=== PATIENT | female | born 1965 | race Caucasian/White ===

== ENCOUNTER 2019-09-19 12:55 | Emergency (ER) | payer BC, SELFPAY ==
[2019-09-19 13:02] VITALS: BP 94/60; PULSE 85; RESP 16; TEMP 36.7; O2SAT 99
--- NOTE | 2019-09-19 13:14 | ED.URI ---
HPI - URI/Sore Throat General Chief Complaint: Upper Respiratory Infection Stated Complaint: CHILLS/COUGH Time Seen by Provider: 09/19/19 13:15 Source: patient and RN notes reviewed Mode of arrival: ambulatory Limitations: no limitations History of Present Illness HPI Narrative: 53-year-old female presents with concern for 2-day history of body aches, cough, fever, sweats, chills, rhinorrhea, nasal congestion. Reports taking [id number] medication with no relief MD elicited complaint: cough Related Data Home Medications Medication Instructions Recorded Confirmed alprazolam 0.5 mg tablet 0.5 mg PO TID 09/17/19 Allergies Allergy/AdvReac Type Severity Reaction Status Date / Time Penicillins Allergy Unknown Unknown Verified 09/18/19 14:10 tetracycline Allergy Unknown Unknown Verified 09/18/19 14:10 Review of Systems Review of Systems: Narrative: CONSTITUTIONAL: Reports malaise, chills, sweats, fever. EYES: Denies visual changes, redness, or discharge. ENT: Reports rhinorrhea, congestion. Denies sinus pain, otalgia and sore throat. CARDIOVASCULAR: Denies chest pain, palpitations, or edema. RESPIRATORY: Reports cough. Denies dyspnea. GASTROINTESTINAL: Denies abdominal pain, nausea, vomiting, diarrhea SKIN: Denies rash or itching. MUSCULOSKELETAL: Reports myalgia. NEUROLOGIC: Denies headache. All systems reviewed & are unremarkable except as noted in HPI and below PMFSH Social History Social History Smoking status: Current every day smoker Second hand tobacco smoke exposure: Yes Smoking end date: 08/01/01 Alcohol intake: current Comments At time of signature, agree with nursing past medical, surgical, social and family history. There is no relevant family history pertinent to the presenting complaint Exam Narrative: Exam Narrative: GENERAL: Well-appearing, well-nourished, and in no acute distress. HEAD: Normocephalic EYES: PERRLA, conjunctivae clear ENT: Nares clear, turbinates edematous and erythematous, clear discharge. Mucous membranes moist. TM pearly sun with dull light reflex bilaterally; no tragal tenderness. Oropharynx not erythematous without lesions. Tonsils not enlarged and without exudate, no drooling, no hoarseness, no trismus. NECK: Supple. No lymphadenopathy CHEST: Clear to auscultation, breath sounds equal. No wheezing, rhonchi, rales, or stridor. No respiratory distress, speaks in full sentences. Cough noted HEART: Regular rate and rhythm. No murmur heard. Normal peripheral pulses. SKIN: Warm, dry, no rash. NEURO: Alert and oriented x3. PSYCH: Normal mood and affect Course Course Emergency Course: Patient is aware of diagnosis, understands and agrees to treatment plan. Anticipatory guidance given. Patient agrees to follow-up as directed and is aware of reasons to seek care at the emergency department. Portions of this record may have been created with voice recognition software Vital Signs Vital signs: Vital Signs Temperature 98.1 F 09/19/19 13:02 Pulse Rate 85 09/19/19 13:02 Respiratory Rate 16 09/19/19 13:02 Blood Pressure 94/60 L 09/19/19 13:02 Pulse Oximetry 99 09/19/19 13:02 Temperature 98.1 F 09/19/19 13:02 Pulse Rate 85 09/19/19 13:02 Respiratory Rate 16 09/19/19 13:02 Blood Pressure 94/60 L 09/19/19 13:02 Pulse Oximetry 99 09/19/19 13:02 Reviewed. MDM - URI/Sore Throat MDM Narrative Medical decision making narrative: Differential diagnosis considered: Strep pharyngitis, allergic rhinitis, upper respiratory tract infection, sinusitis, rhinosinusitis, nasopharyngitis. viral pharyngitis, otitis media, otitis externa, pneumonia, bronchitis, viral cough syndrome, viral syndrome, and influenza. Exam findings show no acute concerns or changes; patient is non-toxic appearing and is in no distress. Patient is appropriate for outpatient treatment and follow-up. Lab Data Attestation: I reviewed the
== END 2019-09-19 13:37 | disposition home or self-care (01) ==
PROVIDERS: Emergency Provider Nurse Practitioner; PCP Family Medicine
DX: J10.1 Influenza due to other identified influenza virus with other respiratory manifestations (principal); F17.200 Nicotine dependence, unspecified, uncomplicated
CPT/HCPCS: 87804; 99213; G0463

== ENCOUNTER 2020-12-05 11:27 | Outpatient (CLI) | payer BC, SELFPAY ==
--- NOTE | ~2020-12-05 | XR_ITS ---
EXAMINATION: XR chest 2V DATE: 12/05/2020 11:46 INDICATION: 2 weeks of cough TECHNIQUE: PA and lateral views of the chest were obtained. COMPARISON: Chest radiograph dated 12/17/2017 FINDINGS: The lungs are clear with no focal airspace opacities, pulmonary edema, pleural effusion or pneumothor ax. The cardiomediastinal silhouette is normal. There are a few old healed left rib fractures. Cholec ystectomy clips in right upper quadrant. IMPRESSION: 1. No acute cardiopulmonary disease. Reviewed, dictated and finalized at location A.
== END 2020-12-05 11:28 | disposition home or self-care (01) ==
LOC: ANHIMG 11:36
PROVIDERS: PCP Family Medicine; Visit Provider Nurse Practitioner Family
DX: R05 Cough (principal); Z72.0 Tobacco use
CPT/HCPCS: 71046

== ENCOUNTER 2022-01-29 10:30 | Outpatient (CLI) | payer BC, SELFPAY ==
--- NOTE | ~2022-01-29 | XR_ITS ---
XR chest 2V DATE: 01/29/2022 10:53 INDICATION: Cough, chest tightness, shortness of breath. Rhinorrhea. TECHNIQUE: PA and lateral views COMPARISON: 12/05/2020 2 view chest FINDINGS: Normal heart size. No hilar or mediastinal enlargement. Moderate hyperinflation. No pulmonary infiltrate or consolidation, pleural effusion or pulmonary vasc ular congestion or pneumothorax. Status post cholecystectomy Osteopenia. Osteoarthritic change at the glenohumeral joints. IMPRESSION: No active cardiopulmonary disease Reviewed, dictated and finalized at location B.
== END 2022-01-29 10:31 | disposition home or self-care (01) ==
PROVIDERS: PCP Family Medicine; Visit Provider Nurse Practitioner Family
DX: R05.9 Cough, unspecified (principal)
CPT/HCPCS: 71046

== ENCOUNTER 2023-03-23 09:41 | Outpatient (CLI) | payer BC, SELFPAY ==
--- NOTE | ~2023-03-23 | XR_ITS ---
EXAMINATION: XR shoulder RT min 2V INDICATION: Right shoulder pain TECHNIQUE: Four views of the right shoulder are submitted. COMPARISON: None FINDINGS: Normal alignment. No fracture. There is moderate osteoarthritis of the acromioclavicular an d glenohumeral joints. A healed sixth rib fracture is noted. Soft tissues are unremarkable. IMPRESSION: 1. No acute osseous abnormality. Reviewed, dictated and finalized at location A.
== END 2023-03-23 09:42 | disposition home or self-care (01) ==
PROVIDERS: PCP Family Medicine; Visit Provider Nurse Practitioner Family
DX: S49.91XA Unspecified injury of right shoulder and upper arm, initial encounter (principal)
CPT/HCPCS: 73030

== ENCOUNTER 2023-08-11 11:46 | Outpatient (CLI) | payer BC, SELFPAY ==
--- NOTE | ~2023-08-11 | XR_ITS ---
EXAMINATION: XR chest 2V DATE: 08/11/2023 12:04 INDICATION: Chronic cough TECHNIQUE: PA and lateral views of the chest were obtained. COMPARISON: Chest radiograph dated 01/29/2022 FINDINGS: The lungs remain clear with no focal airspace opacities, pulmonary edema, pleural effusion or pneumot horax. The cardiomediastinal silhouette is normal. Cholecystectomy clips in right upper quadrant. Cou ple old healed bilateral rib fractures. IMPRESSION: 1. No acute cardiopulmonary disease. Reviewed, dictated and finalized at location A. 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
== END 2023-08-11 11:47 | disposition home or self-care (01) ==
LOC: ANHIMG 11:49
PROVIDERS: PCP Family Medicine; Visit Provider Nurse Practitioner Family
DX: R05.3 Chronic cough (principal); R06.02 Shortness of breath
CPT/HCPCS: 71046

== ENCOUNTER 2024-02-23 14:47 | Outpatient (CLI) | payer BC, SELFPAY ==
--- NOTE | ~2024-02-23 | CT_ITS ---
CT Scan of the Chest without Contrast: Clinical Indication: Lung cancer screening, nicotine dependence Technique: Contiguous sections were acquired throughout the chest without intravenous contrast. Dose reduction technique was used on this scan by utilizing automated exposure control and iterative recon struction technique. The dose-length product (DLP) was 87.61 mGy-cm. Findings: There is no evidence of any significant mediastinal, hilar or axillary lymphadenopathy. The mediastin al soft tissues appear normal. There is no evidence of pleural or pericardial effusion. The lungs are clear. No pulmonary nodules or infiltrates are noted. There is moderate emphysema. Images through the upper abdomen reveal diffuse hepatic steatosis. Impression: Lung RADS 1: Negative. 12 month follow-up screening CT advised. Moderate emphysema. Reviewed, dictated and finalized at location . Impression: Lung RADS 1: Negative. 12 month follow-up screening CT advised. Moderate emphysema.
== END 2024-02-23 14:48 | disposition home or self-care (01) ==
PROVIDERS: PCP Family Medicine
DX: Z12.2 Encounter for screening for malignant neoplasm of respiratory organs (principal); F17.210 Nicotine dependence, cigarettes, uncomplicated
CPT/HCPCS: 71271

== ENCOUNTER 2024-04-11 13:19 | Outpatient (CLI) | payer BC, SELFPAY ==
[2024-04-12 15:48] LABS: EBV Virus Capsid Ag IgG Ab >750.00 U/mL; EBV Virus Capsid Ag IgM Ab <36.00 U/mL
== END 2024-04-11 13:20 | disposition home or self-care (01) ==
LOC: ANHLAB 13:21
PROVIDERS: PCP Family Medicine; Visit Provider Nurse Practitioner Family
DX: Z20.828 Contact with and (suspected) exposure to other viral communicable diseases (principal)
CPT/HCPCS: 36415; 86664; 86665

== ENCOUNTER 2024-09-01 09:41 | Outpatient (CLI) | payer BC, SELFPAY ==
--- NOTE | ~2024-09-01 | CT_ITS ---
EXAMINATION: CT sinus wo con DATE: 09/01/2024 10:05 INDICATION: TECHNIQUE: Computed tomography (CT) of the paranasal sinuses was performed without intravenous contra st. The dose-length product (DLP) was 189.39 mGy-cm. Iterative reconstruction was used. COMPARISON: None FINDINGS: There is normal development of the paranasal sinuses. The mastoid air cells are clear. Mode rate mucosal thickening in the bilateral maxillary sinuses, with air-fluid levels and aerated secreti ons. Small nodular opacities in the bilateral maxillary sinuses may represent retention cysts/polyps. Complete opacification of a mid left ethmoid air cell, with osseous expansion, likely polyp. Mild mu cosal thickening in the ethmoid and sphenoid sinuses. Mild rightward bowing of the anterior osseous s eptum with a small osseous spur. The bilateral ostiomeatal complexes are patent. Visualized soft tiss ues are unremarkable. Possible prior bilateral antral window procedures. Denys bullosa in the left m iddle turbinate. Aeration/expansion in the left upper nasal cavity, possibly representing a superior turbinate denys bullosa. IMPRESSION: CT findings suggestive of acute bilateral maxillary sinusitis. 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 Bilateral ostiomeatal unit occlusion. Multiple small suspected retention cyst/polyps. Reviewed, dictated and finalized at location K. RADIATION IMPRESSION: CT findings suggestive of acute bilateral maxillary sinusitis. Mucoperiosteal s inus disease involving all paranasal sinuses except for the frontal sinuses. Bilateral ostiomeatal unit occlusion. Multiple small suspected retention cyst/polyps.
--- OUTSIDE RECORDS SUMMARY | 2024-09-01 09:45 | XMS_ITS | Continuity of Care Document ---
Author Organization [facility] Address [address] [place] [address] [address] [place] [address] Phone Care Team Providers Care Roofer Metal Name Role Phone Ronald Purdy Unavailable Unavailable Procedures Procedure Date Eye Exam & Treatment Refraction Office/outpatient Visit, New Advance Directives Directive Yes / No Effective Date File Name No Information Encounters Encounter Description Practice Location Reason(s) For Visit Diagnoses Date Provider Providers Copied on Encounter [facility], [address] [place] [address] [address], [place], [place], [id number], tel:[phone] [address] [facility] No Information [address] Rajwinder Cardenas. [address] [facility] , [address], [place], [address], [place]. tel:[phone] Office/outpat ient Visit, [facility], [address] [place] [address] [address], [place], [place], [id number], tel:[phone] [address] [facility] No Information [address] Rajwinder Cardenas. [address] [facility] [address], [address], [place], [address], [place]. tel:[phone] Family History Family Member Type Diagnosis Age At Onset No Information Payers Payer name Insurance type Covered libertarian ID Authoriza tialiyah(s) [facility] [id number] Social History Type Description Quantity Date Captured Comments Sex Female Smoking Status No Information Chief Complaint And Reason For Visit No Information Reason For Referral Reason For Referral No Information History Of Present Illness Encounter Date Complaint History Of Prese nt Illness No Information Functional Status Date Functional Assessmen t No Information Instructions Date Instruction Additional Infor mation No Information Assessments Type Assessment Date No Information Patient Care Teams Name Effective Dates (start - stop) Status Members No Information
--- OUTSIDE RECORDS SUMMARY | 2024-09-01 09:45 | XMS_ITS | Clinical Summary ---
Author Organization [facility] Address [address] [place] [address]. [place] [address] [place] [address] Care Team Providers Care Nutrition Specialist Name Role Phone Unavailable Primary Care Provider Unavailabl e Social History Tobacco Use Types Packs/Day Years Used Date Smoking Tobacco: Never Assessed Comments Unknown Sex and Gender Information Value Date Recorded Sex Assigned at Not on file Legal Sex Female 8:37 PM CDT Gender Identity Not on file Sexual Orientation Not on file Plan of Treatment Health Maintenance Due Date Last Done Comments Cervical Cancer Screening Pa p Smear (Age 30 to 64) Every 3 Years 1963 Colorectal Cancer Screening Colonoscopy (10 Years) 1963 Annual Physical 10/30/1966 Hepatitis C 10/30/1981 DTaP, Tdap and Td Vaccines ( 1 - Tdap) 10/30/1982 Cervical Cancer Screening Pa p with HPV Testing (Age 30 to 64) Every 5 Years 10/30/1993 Cervical Cancer Screening with HPV 10/30/1993 Mammogram Screening 2003 Zoster Vaccines (1 of 2) 10/30/2013 COVID-19 Vaccine ( - 2023-2 5 season) 2024 Influenza Adult (#1) 2024 RSV Immunization or 60+ Years (1 - 1-dose 75+ series) 10/30/2038 Meningococcal B Vaccine Aged Out No l onger eligible based on patient's age to complete this topic Meningococcal Vaccine Aged Out No altagracia tyson eligible based on patient's age to complete this topic Pneumococcal Vaccine: Pediat rics (0 to 5 Years) and At-Risk Patients (6 to 64 Years) Aged Out No longer eligible b ased on patient's age to complete this topic RSV Immunizations Under 20 Months Aged Out No longer eligible based on patient's age to complete this topic
--- OUTSIDE RECORDS SUMMARY | 2024-09-01 09:45 | XMS_ITS | Clinical Summary ---
Author Organization [facility] Address [address] [place] [address] Care Team Providers Care Cell Biologist Name Role Phone Eliceo Yancey MD Primary Care Provider [phone] Rodríguez Howard MD Unavailable [phone] Source Comments [facility],non-owned Affiliates and Associated Physician Practices is amultiple site organization consisting of ambulatory clinics and hospital sitesin [place], [place], [place] and [place]. This disclosure is being madepursuant to the Care Everywhere program and may not contain all information available regarding this patient. Last updated 18.[facility] Allergies Active Allergy Reactions Criticality Noted Date Comments Nickel Rash Medium 04/21/2021 Tetracycline Urticaria Medium 06/10/2011 Medications * Be aware that medications may not be up to date on this document. Alwaysverify current medications with the patient. Medication Sig Dispensed Refills Start Date End Date Status SYMBICORT 160-4.5 MCG/ACT inhaler Inhale 1 puff by mouth once daily 09/13/2018 Active sertraline (ZOLOFT) 100 MG tablet Take 100 mg by mouth at bedtime 08/17/2018 Active RESTASIS 0.05 % ophthalmic suspension Instill 1 drop into both eyes 2 times daily 06/19/2019 Active ALPRAZolam (XANAX) 0.5 MG tablet TK 1 T PO TID PRF ANXIETY 10/25/2019 Active esomeprazole (NEXIUM) 40 MG capsule Take 40 mg by mouth at bedtime 12/27/2021 Active rosuvastatin (CRESTOR) 20 MG tablet Take 20 mg by mouth 05/12/2021 Activ e albuterol HFA (Proventil; Ventolin; Proair) 108 (90 Base) MCG/ACT inhaler INHALE 2 PUFFS BY MOUTH EVERY 4 HOURS NEEDED FOR SHORTNESS OF BREATH OR WHEEZING 02/02/2022 Active vitamin D3 (Cholecalciferol) 25 MCG (1000 UNITS) tablet Take by mouth once daily Active Active Problems Problem Noted Date Diagnosed Date Primary osteoarthritis of both knees 04/20/2018 Primary osteoarthritis of right knee 01/27/2018 Social History Tobacco Use Types Packs/Day Years Used Date Smoking Tobacco: Every Day Cigarettes 1 30 Smokeless Tobacco: Never Alcohol Use Standard Drinks/Week Comments Not Currently 0 (1 standard drink = 0.6 oz pur e alcohol) AUDIT-C Answer Date Recorded Q1: How often do you have a drink containing alcohol? Monthly or less 05/20/2022 Q2: How many drinks containi ng alcohol do you have on a typical day when you are drinking? Patient does not drink Q3: How often do you have si x or more drinks on one occasion? Never 05/20/2022 Sex and Gender Information Value Date Recorded Sex Assigned at Not on file Gender Identity Not on file Sexual Orientation Not on file Last Filed Vital Signs Vital Sign Reading Time Taken Comments Blood Pressure 109/52 05/21/2022 11:14 AM CDT Pulse 75 05/21/2022 11:14 AM CDT Temperature 36.6 ??C (97.9 ??F) 05/21/2022 11:14 AM C DT Respiratory Rate 16 05/21/2022 11:14 AM CDT Oxygen Saturation 95% 05/21/2022 11:14 AM CDT Inhaled Oxygen Concentration - - Weight 61.8 kg (136 lb 3.2 oz) 05/20/2022 7:43 A M CDT Height 157.5 cm (5' 2 ) 05/20/2022 7:43 AM CDT s tated Body Mass Index 24.91 05/20/2022 7:43 AM CDT Plan of Treatment Health Maintenance Due Date Last Done Comments COLOGUARD (AGES 45-75) - COL ON CA SCREENING 1963 COLON MONITORING 1963 COLONOSCOPY - COLON CA SCREENING 1963 CT COLONOGRAPHY - COLON CA SCREENING 1963 Colorectal Cancer Screening 1963 FIT - COLON CA SCREENING 1963 FLEX SIG - COLON CA SCREENING 1963 MAMMOGRAM 1963 PAP SMEAR 1963 HIV SCREENING 10/30/1978 HEPATITIS C SCREENING 10/26/1981 DTAP/TDAP/TD VACCINES (1 - Tdap) 10/30/1982 PNEUMOCOCCAL VACCINE 50+ (1 of 2 - PCV) 10/30/1982 PNEUMOCOCCAL VACCINE (1 of 2 - PCV) 10/30/1982 LUNG CANCER SCREENING 10/30/2013 ZOSTER VACCINE (1 of 2) 10/30/2013 COVID-19 VACCINE (4 - 2023-2 5 season) 2024 08/04/2021, 10/17/2020, 09/25/2020 INFLUENZA VACCINE (#1) 2024 DEPRESSION SCREENING 08/01/2024 Respiratory Syncytial Virus (RSV) Vaccine Pt: or over 60 yrs (1 - 1-dose 75+ series) 10/30/2038 HEPATITIS B VACCINE Aged Out No longe r eligible based on patient's age to complete this topic HIB VACCINE Aged Out No longer eligi ble based on patient's age to complete this topic HPV VACCINE Aged Out No longer eligi ble based on patient's age to complete this topic MENINGOCOCCAL (Group B) VACCINE Aged Out No longer eligible b ased on patient's age to complete this topic MENINGOCOCCAL VACCINE Aged Out No altagracia tyson eligible based on patient's age to complete this topic Medical Devices Implanted Type Area Innersole Maker Device Identifier Shelf Expiration Date Model / Serial / Lot Cmnt Bone Djo Srg Cblt 40gm Hvisc Strl Implanted:Qty: 1 on 05/20/2022 by Rodríguez Howard MD at [facility] Right: Knee [employer] 02/11/2023 [id number] / / [id number] Tray Tib 67mm Kn Cocr I Beam Implanted:Qty: 1 on 05/20/2022 by Rodríguez Howard MD at [facility] Right: Knee [employer] 02/10/2032 [id number] / / [id number] Cmpnt Fem Kn Rt Cr Cmnt Prm Vngrd Intlk Implanted:Qty: 1 on 05/20/2022 by Rodríguez Howard MD at [facility] Right: Knee [employer] 06/28/2025 [id number] / / [id number] Cmpnt Ptlr Std 28mm 3 Pg Kn Ser A Implanted:Qty: 1 on 05/20/2022 by Rodríguez Howard MD at [facility] Right: Knee [employer] 06/03/2026 [id number] / / [id number] Vngrd Arcm Kn Ant Stab Implanted:Qty: 1 on 05/20/2022 by Rodríguez Howard MD at [facility] Right: Knee [employer] 03/31/2027 [id number] / / [id number] Advance Directives * Full Code (Latest Code Status on File) Date Activated Date Inactivated Comments 05/20/2022 12:37 PM 05/21/2022 2:37 PM Care Teams Cell Biologist Relationship Specialty Start Date End Date Eliceo Yancey MD [address] [place] [address] PCP - General Family Medicine 01/27/18 Rodrí[place] [address] [address] [place] [id number] Orthopedic Surgery 01/27/18
--- OUTSIDE RECORDS SUMMARY | 2024-09-01 09:45 | XMS_ITS | Patient Health Summary ---
Author Organization [facility] Categorical Address [address] [place] [address] Care Team Providers Care Low Pressure Boiler Tender Name Role Phone Eliceo Yancey MD Primary Care Provider [phone] Rodríguez Howard MD Unavailable [phone] Note from [facility] [place] [facility] [place]non-owned Affiliates and Associated Physician Practices is amultiple site organization consisting of ambulatory clinics and hospital sitesin [place], [place], [place] and [place]. This disclosure is being madepursuant to the Care Everywhere program and may not contain all information available regarding this patient. Last updated 18.[facility] Categorical Allergies * Nickel(Rash) -Medium Criticality * Tetracycline(Urticaria) -Medium Criticality * Penicillins(Urticaria) -Medium Criticality,Inactive Medications * Be aware that medications may not be up to date on this document. Alwaysverify current medications with the patient. * SYMBICORT 160-4.5 MCG/ACT inhaler(Started 09/13/2018) Inhale 1 puff by mouth once daily * sertraline (ZOLOFT) 100 MG tablet(Started 08/17/2018) Take 100 mg by mouth at bedtime * RESTASIS 0.05 % ophthalmic suspension(Started 06/19/2019) Instill 1 drop into both eyes 2 times daily * ALPRAZolam (XANAX) 0.5 MG tablet(Started 10/25/2019) TK 1 T PO TID PRF ANXIETY * esomeprazole (NEXIUM) 40 MG capsule(Started 12/27/2021) Take 40 mg by mouth at bedtime * rosuvastatin (CRESTOR) 20 MG tablet(Started 05/12/2021) Take 20 mg by mouth * albuterol HFA (Proventil; Ventolin; Proair) 108 (90 Base) MCG/ACT inhaler (Started 02/02/2022) INHALE 2 PUFFS BY MOUTH EVERY 4 HOURS NEEDED FOR SHORTNESS OF BREATH OR WHEEZING * vitamin D3 (Cholecalciferol) 25 MCG (1000 UNITS) tablet Take by mouth once daily Active Problems Problem Noted Date Diagnosed Date [...] Mass Index 24.91 05/20/2022 7:43 AM CDT Medical Devices Implanted Type Area Flying Shear Operator Device Identifier Shelf Expiration Date Model / Serial / Lot Cmnt Bone Djo Srg Cblt 40gm Hvisc Strl Implanted:Qty: 1 on 05/20/2022 by Rodríguez Howard MD at [facility] Right: Knee [employer] 02/11/2023 600-15-000 / / [id number] Tray Tib 67mm Kn Cocr I Beam Implanted:Qty: 1 on 05/20/2022 by Rodríguez Howard MD at [facility] Right: Knee [employer] 02/10/2032 [id number] / / [id number] Cmpnt Fem Kn Rt Cr Cmnt Prm Vngrd Intlk Implanted:Qty: 1 on 05/20/2022 by Rodríguez Howard MD at [facility] Right: Knee [employer] 06/28/2025 [id number] / / [id number] Cmpnt Ptlr Std 28mm 3 Pg Kn Ser A Implanted:Qty: 1 on 05/20/2022 by Rodríguez Howard MD at [facility] Right: Knee [employer] 06/03/2026 [id number] / / [id number] Vngrd Arcm Kn Ant Stab Implanted:Qty: 1 on 05/20/2022 by Rodríguez Howard MD at [facility] Right: Knee [employer] 03/31/2027 [id number] / / [id number] Procedures * XR KNEE RIGHT 3VW(Performed 07/08/2022) Performed for Aftercare following right knee joint replacement surgery * NEURAXIAL BLOCK(Performed 05/20/2022) * AZ TOTAL KNEE REPLACEMENT(Performed 05/20/2022) * EKG 12-LEAD(Performed 04/09/2022) Performed for Preoperative examination * CBC W AUTO DIFFERENTIAL(Performed 04/09/2022) Performed for Preoperative examination * COMPREHENSIVE METABOLIC PANEL(Performed 04/09/2022) Performed for Preoperative examination * XR KNEE RIGHT 3VW(Performed 03/12/2021) Performed for Primary osteoarthritis of right knee * XR KNEE BILAT 3VW(Performed 04/20/2018) Performed for Pain in both knees, unspecified chronicity Results * XR KNEE RIGHT 3VW (07/08/2022 2:53 PM COMPUTATIONAL THEORY SCIENTIST) Only the most recent of2 resultswithin the time period is included. Anatomical Region Laterality Modality Lower Extremity Computed Radiogr aphy Narrative 07/08/2022 2:54 PM COMPUTATIONAL THEORY SCIENTIST Krystin Vera, RT(R) ? 07/16/2022 ??4:25 PM See progress notes for results Rodríguez Howard MD DIAGNOSTIC IMAGING O RDERABLES * Neuraxial Block (05/20/2022 10:12 AM CDT) Narrative Sony Becerril, DIESEL ENGINE INSPECTOR-EXOTIC DANCER - 05/20/2022 10:12 AM CDT Sony Becerril, DIESEL ENGINE INSPECTOR-EXOTIC DANCER ? 05/20/2022 10:13 AM Neuraxial Block Note ?? Pre-Procedure: ?? Procedure Name: ??Neuraxial Block Patient Location: ??OR Indications: ??surgical anesthesia Pre-Anesthetic Checklist: ??Patient identified, IV Checked, Risks and benefits discussed, Surgical consent verified, Monitors and equipment, Site examined, Pre-op evaluation done, Informed consent obtained, Questions answered/anesthesia questions answered and Allergies reviewed Anticoagulation/ Anti-thrombosis status confirmed? ??Yes Supplemental O2: ??room air Monitors: ??BP and continuous pluse ox Patient Condition: ??sedated, meaningful contact maintained throughout procedure Patient Sedated? ??Nursing sedation administration ? Sedation Type: ??mild ? Sedation Agents (manual): ??versed ?? fentanyl mL Procedure: ?? Block Type: ??Spinal Prep: ??Betadine Sterile Field: ??mask, cap/hat, sterile established and sterile gloves Approach: ??midline Skin was localized? ??Nursing documentation on [facility] Skin localized with: ??Lidocaine 1% and 2 mL Spinal Block: ?? Needle Type: ??spinal needle Needle Gauge: ??22 Needle Length: ??90 mm Placement Site: ??L3-4 Number of Attempts: ??2 CSF: ??free flow, aspiration before injection Local anesthetics used? ??Nursing documentation on the [facility] Spinal Local Anesthetic: ? Bupivacaine: ??0.75% in dextrose 1.7 ??mL Degree of difficulty: ??none Procedure Tolerance: ??tolerated well ?? performed while the patient was sedated Sensory Level: ??lower level Motor Blockade: ??Yes Position post procedure: ??supine Vital Signs: ??Vital signs monitored and stable throughout. ??See anesthesia record for details. Start Time: ??05/20/2022 9:37 AM End Time: ??05/20/2022 9:51 AM Total Time: ??14 Staff: ?? Anesthesia Provider: ??Sony Becerril APRN-EXOTIC DANCER Provider #1: ??Trino Feliciano, HUGH ?? - ??performed the procedure Deandre Orozco MD GENERAL ANESTHESIA O RDERABLES * EKG 12-LEAD (04/09/2022 12:31 PM CDT) Ventricular Rate 75 BPM [facility] Atrial Rate 75 BPM [facility] P-R Interval 116 ms [facility] QRS Duration ms 78 ms [facility] Q-T Interval ms 404 ms [facility] QTC Calculation (Bezet) 451 ms [facility] Calculated P [place] 37 degrees [facility] Calculated R [place] 59 degrees [facility] Calculated T [place] 51 degrees [facility] Interpretation EKG Normal sinus rhythm Normal ECG No previous ECGs available Confirmed by JEANNE STANFORD MD ([id number]) on 04/12/2022 7:51:32 PM [facility] 04/09/2022 12:3 1 PM CDT 04/12/2022 7:51 PM CDT Joie Barrett DO ECG ORDERABLES [facility] * (ABNORMAL) CBC W AUTO DIFFERENTIAL (04/09/2022 12:12 PM CDT) WBC 9.3 4.4 - 10.7 x10E9/L 04/09/2022 12:24 PM CDT [facility] WBC Corrected 04/09/2022 12:24 PM CDT [facility] RBC 5.27(H) 3.80 - 5.20 x10E12/L 04/09/2022 12:24 PM CDT [facility] Hemoglobin 13.4 12.0 - 15.6 gm/dL 04/09/2022 12:24 PM CDT [facility] Hematocrit 43.0 35.9 - 45.5 % 04/09/2022 12:24 PM CDT [facility] MCV 81.6 80.7 - 98.3 fl 04/09/2022 12:24 PM CDT [facility] MCH 25.4(L) 26.7 - 34.0 pg 04/09/2022 12:24 PM CDT [facility] MCHC 31.2 30.8 - 35.9 gm/dL 04/09/2022 12:24 PM CDT [facility] Platelet Count 302 153 - 416 x10E9/L 04/09/2022 12:24 PM CDT [facility] RDW-CV 13.8 12.1 - 14.9 % 04/09/2022 12:24 PM CDT [facility] MPV 9.7 9.4 - 12.9 fl 04/09/2022 12:24 PM CDT [facility] Neutrophils % 57.3 44.0 - 73.0 % 04/09/2022 12:24 PM CDT [facility] Lymphocytes % 31.7 20.0 - 43.0 % 04/09/2022 12:24 PM CDT [facility] Monocytes % 7.5 5.0 - 13.0 % 04/09/2022 12:24 PM CDT [facility] Eosinophils % 2.9 0.0 - 6.0 % 04/09/2022 12:24 PM CDT [facility] Basophils % 0.3 0.0 - 2.0 % 04/09/2022 12:24 PM CDT [facility] Immature Granulocytes 0.3 0 - 1 % 04/09/2022 12:24 PM CDT [facility] Neutrophil Absolute 5.30 2.01 - 7.14 x10E9/L 04/09/2022 12:24 PM CDT [facility] Lymphocytes Absolute 2.93 1.07 - 3.94 x10E9/L 04/09/2022 12:24 PM CDT [facility] Monocytes Absolute 0.69 0.26 - 1.07 x10E9/L 04/09/2022 12:24 PM CDT [facility] Eosinophils Absolute 0.27 0 - 0.47 x10E9/L 04/09/2022 12:24 PM CDT [facility] Basophils Absolute 0.03 0 - 0.08 x10E9/L 04/09/2022 12:24 PM CDT [facility] Immature Granulocytes Absolute 0.03 0.00 - 0.06 x10E9/L 04/09/2022 12:24 PM CDT [facility] nRBC Auto 0 /100 WBC 04/09/2022 12:24 PM CDT [facility] Blood BLOOD SPECIMEN / Unknown Venipuncture / Unknown 04/09/2022 12:12 PM CDT 04/09/2022 12:19 PM CDT Hailey K Nemesio DIESEL ENGINE INSPECTOR-DOCUMENT IMAGE TECHNICIAN LAB - HEMATO LOGY ORDERABLES [facility] [address] [place] [address] * (ABNORMAL) COMPREHENSIVE METABOLIC PANEL (04/09/2022 12:12 PM CDT) Glucose 95 70 - 105 mg/dL 04/09/2022 12:41 PM CDT [facility] Sodium 140 136 - 145 mmol/L 04/09/2022 12:41 PM CDT [facility] Potassium 4.1 3.5 - 5.1 mmol/L 04/09/2022 12:41 PM CDT [facility] Chloride 106 98 - 107 mmol/L 04/09/2022 12:41 PM CDT [facility] CO2 27 23 - 31 mmol/L 04/09/2022 12:41 PM CDT [facility] Calcium 9.3 8.4 - 10.4 mg/dL 04/09/2022 12:41 PM CDT [facility] Anion Gap 7(L) 8 - 18 mmol/L 04/09/2022 12:41 PM CDT [facility] BUN 14 9.8 - 20.1 mg/dL 04/09/2022 12:41 PM CDT [facility] Creatinine 0.67 0.57 - 1.11 mg/dL 04/09/2022 12:41 PM CDT [facility] Alkaline Phosphatase 128 40 - 150 U/L 04/09/2022 12:41 PM CDT [facility] ALT 17 0 - 61 U/L 04/09/2022 12:41 PM CDT [facility] AST 20 5 - 34 U/L 04/09/2022 12:41 PM CDT [facility] Protein Total 7.4 6.4 - 8.3 gm/dL 04/09/2022 12:41 PM CDT [facility] Albumin 4.5 3.5 - 5.2 gm/dL 04/09/2022 12:41 PM CDT [facility] Bilirubin Total 0.6 0.2 - 1.2 mg/dL 04/09/2022 12:41 PM CDT [facility] eGFR by CKD-EPI >90 >=90 mL/min/1.7 3 m2 04/09/2022 12:41 PM CDT [facility] Blood BLOOD SPECIMEN / Unknown Venipuncture / Unknown 04/09/2022 12:12 PM CDT 04/09/2022 12:19 PM CDT Hailey Herr DIESEL ENGINE INSPECTOR-DOCUMENT IMAGE TECHNICIAN LAB - CHEMIS TRY ORDERABLES [facility] [address] [place] [address] * XR KNEE BILAT 3VW (04/20/2018 3:26 PM CDT) Anatomical Region Laterality Modality Lower Extremity Computed Radiogr aphy Narrative 04/20/2018 5:22 PM CDT Park Catherine, RT(R) ? 04/20/2018 ??5:22 PM See Chart For Xray Report Elicia Bravo PA-C DIAGNOSTIC IM AGING ORDERABLES Care Teams Low Pressure Boiler Tender Relationship Specialty Start Date End Date Eliceo Yancey MD [address] [place] [id number] PCP - General Family Medicine 01/27/18 Rodrí[place] [id number] [address] [place] [id number] Orthopedic Surgery 01/27/18
--- OUTSIDE RECORDS SUMMARY | 2024-09-01 09:45 | XMS_ITS | Referral Summary ---
Author Organization [facility] [employer] Address [address] [place] [address] Care Team Providers Care Offshore Diver Name Role Phone Eliceo Yancey MD Primary Care Provider [phone] Rodríguez Howard MD Unavailable [phone] Source Comments [facility],non-owned Affiliates and Associated Physician Practices is amultiple site organization consisting of ambulatory clinics and hospital sitesin [place], [place], [place] and [place]. This disclosure is being madepursuant to the Care Everywhere program and may not contain all information available regarding this patient. Last updated 18.[facility] Allergies Active Allergy Reactions Criticality Noted Date [...] 05/20/2022 7:43 AM CDT Plan of Treatment Not on file Medical Devices Implanted Type Area Quality Control Operator Device Identifier Shelf Expiration Date Model / Serial / Lot Cmnt Bone Djo Srg Cblt 40gm Hvisc Strl Implanted:Qty: 1 on 05/20/2022 by Rodríguez Howard MD at [facility] Right: Knee [employer] 02/11/2023 600-15-000 / / [id number] Tray Tib 67mm Kn Cocr I Beam Implanted:Qty: 1 on 05/20/2022 by Rodríguez Howard MD at [facility] Right: Knee [employer] 02/10/2032 [id number] / / [id number] Cmpnt Fem Kn Rt Cr Cmnt Prm Vngrd Intlk Implanted:Qty: 1 on 05/20/2022 by Rodríguez Howard MD at [facility] Right: Knee [employer] 06/28/2025 [id number] / / [id number] Cmpnt Ptlr Std 28mm 3 Pg Kn Ser A Implanted:Qty: 1 on 05/20/2022 by Rodríguez Howard MD at [facility] Right: Knee [employer] 06/03/2026 [id number] / / [id number] Vngrd Arcm Kn Ant Stab Implanted:Qty: 1 on 05/20/2022 by Rodríguez Howard MD at [facility] Right: Knee [employer] 03/31/2027 [id number] / / [id number] Advance Directives * Full Code (Latest Code Status on File) Date Activated Date Inactivated Comments 05/20/2022 12:37 PM 05/21/2022 2:37 PM Care Teams Offshore Diver Relationship Specialty Start Date End Date Eliceo Yancey MD [address] [place] [phone] PCP - General Family Medicine 01/27/18 Rodrí[place] [id number] [address] Orthopedic Surgery 01/27/18
--- OUTSIDE RECORDS SUMMARY | 2024-09-01 09:45 | XMS_ITS | Clinical Summary ---
Author Organization [facility] Care Team Providers Care Securities Supervisor Name Role Phone Unavailable Primary Care Provider Unavailabl e Social History Tobacco Use Types Packs/Day Years Used Date Smoking Tobacco: Never Assessed Comments Unknown Sex and Gender Information Value Date Recorded Sex Assigned at Not on file Legal Sex Female 11:28 PM CDT Gender Identity Not on file Sexual Orientation Not on file Plan of Treatment Health Maintenance Due Date Last Done Comments Hepatitis C Virus (HCV) Screening 1965 Pap Smear 10/30/1984 Cervical Cancer Screening (CCS) 10/30/1993 HPV/Cotest 10/30/1993 Colonoscopy 10/30/2008 Colorectal Cancer Screening 10/30/2008 Cologuard 10/30/2013 Immunochemical Fecal Occult Blood 10/30/2013 Mammogram 10/30/2013 Pneumococcal Immunization (5 0+ years) (1 of 1 - PCV) 10/30/2013 Zoster Immunization (1 of 2) 10/30/2013 Influenza Immunization (#1) 2024 SARS-COV-2 Immunization ( season) 2024 08/04/2021, 10/17/2020, 09/25/2020 Respiratory Syncytial Virus (RSV) Immunization (Adult) (1 - 1-dose 75+ series) 10/30/2038 DTaP/Tdap/Td Immunization Discontinued 06/27/2018 TdaP Immunization Completed 06/27/2018 Hepatitis B Immunization Aged Out No longer eligible based on patient's age to complete this topic Meningococcal Immunization (ACWY) Aged Out No longer eligible based on patient's age to complete this topic Pneumococcal Immunization Combined Aged Out No longer eligible based on patient's age to complete this topic Rotavirus Immunization Aged Out No lo nger eligible based on patient's age to complete this topic
== END 2024-09-01 09:42 | disposition home or self-care (01) ==
PROVIDERS: PCP Family Medicine; Visit Provider Nurse Practitioner Adult Health
DX: J32.9 Chronic sinusitis, unspecified (principal)
CPT/HCPCS: 70486

== ENCOUNTER 2024-09-05 11:59 | Outpatient (CLI) | payer BC, SELFPAY ==
--- NOTE | ~2024-09-05 | XR_ITS ---
EXAMINATION: XR chest 2V 09/05/2024 12:12 INDICATION: Acute bronchitis PROCEDURE: 2 view chest COMPARISON: 08/11/2023 FINDINGS: The lungs are clear. The lungs are hyperinflated which is consistent with, but not diagnost ic of chronic obstructive pulmonary disease. The cardiomediastinal silhouette is within normal limits . There are no pleural effusions. There is no pneumothorax suspected. IMPRESSION: 1: NO ACUTE CARDIOPULMONARY DISEASE. Reviewed, dictated and finalized at location B. INE LEATHER TRIMMER
--- OUTSIDE RECORDS SUMMARY | 2024-09-05 13:16 | XMS_ITS | Clinical Summary ---
Author Organization [facility] [employer] Address [address] [place] [address] Care Team Providers Care Capacity Planner Name Role Phone Eliceo Yancey MD Primary Care Provider Rodríguez Howard MD Unavailable [phone] Source Comments [facility],non-owned Affiliates and Associated Physician Practices is amultiple site organization consisting of ambulatory clinics and hospital sitesin [place], [place], [place] and [place]. This disclosure is being madepursuant to the Care Everywhere program and may not contain all information available regarding this patient. Last updated 18.[facility] [employer] Allergies Active Allergy Reactions Criticality Noted Date [...] this topic Medical Devices Implanted Type Area Correction Officer Supervisor Device Identifier Shelf Expiration Date Model / Serial / Lot Cmnt Bone Djo Srg Cblt 40gm Hvisc Strl Implanted:Qty: 1 on 05/20/2022 by Rodríguez Howard MD at [facility] Right: Knee [employer] 02/11/2023 600-15-000 / / [id number] Tray Tib 67mm Kn Cocr I Beam Implanted:Qty: 1 on 05/20/2022 by Rodríguez Howard MD at [facility] Right: Knee [employer] 02/10/2032 [id number] / / [id number] Cmpnt Fem Kn Rt Cr Cmnt Prm Vngrd Intlk Implanted:Qty: 1 on 05/20/2022 by Rodríguez Howard MD at [facility] Right: Knee [employer] 06/28/2025 [id number] / / [id number] Cmpnt Ptlr Std 28mm 3 Pg Kn Ser A Implanted:Qty: 1 on 05/20/2022 by Rodríguez Howard MD at [facility] Right: Knee [employer] 06/03/2026 [id number] / / [id number] Brng [id number] Vngrd Arcm Kn Ant Stab Implanted:Qty: 1 on 05/20/2022 by Rodríguez Howard MD at [facility] Right: Knee [employer] 03/31/2027 [id number] / / [id number] Advance Directives * Full Code (Latest Code Status on File) Date Activated Date Inactivated Comments 05/20/2022 12:37 PM 05/21/2022 2:37 PM Care Teams Capacity Planner Relationship Specialty Start Date End Date Eliceo Yancey MD [address] [place] [address] PCP - General Family Medicine 01/27/18 Rodrí[place] [address] [place] [id number] Orthopedic Surgery 01/27/18
--- OUTSIDE RECORDS SUMMARY | 2024-09-05 13:16 | XMS_ITS | Patient Health Summary ---
Author Organization [facility] Address [address] [place] [address] Care Team Providers Care Demographer Name Role Phone Eliceo Yancey MD Primary Care Provider [phone] Rodríguez Howard MD Unavailable [phone] Note from [facility][note 3],non-owned Affiliates and Associated Physician Practices is amultiple site organization consisting of ambulatory clinics and hospital sitesin [place], [place], [place] and [place]. This disclosure is being madepursuant to the Care Everywhere program and may not contain all information available regarding this patient. Last updated 18.[facility] Allergies * Nickel(Rash) -Medium Criticality * Tetracycline(Urticaria) [...] AM CDT Medical Devices Implanted Type Area Motor Vehicle Light Assembler Device Identifier Shelf Expiration Date Model / Serial / Lot Cmnt Bone Djo Srg Cblt 40gm Hvisc Strl Implanted:Qty: 1 on 05/20/2022 by Rodríguez Howard MD at [facility] Right: Knee [employer] 02/11/2023 600-15-000 / / [id number] Tray Tib 67mm Kn Cocr I Beam Implanted:Qty: 1 on 05/20/2022 by Rodríguez Howard MD at [facility] Right: Knee [employer] 02/10/2032 [id number] / / [id number] Cmpnt Fem Kn Rt Cr Cmnt Prm Vngrd Intlk Implanted:Qty: 1 on 05/20/2022 by Rodríguez Howard MD at [facility] Right: Knee [employer] 06/28/2025 [id number] / / [id number] Cmpnt Ptlr Std 28mm 3 Pg Kn Ser A Implanted:Qty: 1 on 05/20/2022 by Rodríguez Howard MD at [facility] Right: Knee [employer] 06/03/2026 [id number] / / [id number] Vngrd Arcm Kn Ant Stab Implanted:Qty: 1 on 05/20/2022 by Rodríguez Howard MD at [facility] Right: Knee [employer] 03/31/2027 [id number] / / [id number] Procedures * XR KNEE RIGHT 3VW(Performed 07/08/2022) Performed for Aftercare following right knee joint replacement surgery * NEURAXIAL BLOCK(Performed 05/20/2022) * NV TOTAL KNEE REPLACEMENT(Performed 05/20/2022) * EKG 12-LEAD(Performed [...] XR KNEE RIGHT 3VW (07/08/2022 2:53 PM VOCATIONAL PLACEMENT SPECIALIST) Only the most recent of2 resultswithin the time period is included. Anatomical Region Laterality Modality Lower Extremity Computed Radiogr aphy Narrative 07/08/2022 2:54 PM VOCATIONAL PLACEMENT SPECIALIST Krystin Vera, RT(R) ? 07/16/2022 ??4:25 PM See progress notes for results Rodríguez Howard MD DIAGNOSTIC IMAGING O RDERABLES * Neuraxial Block (05/20/2022 10:12 AM CDT) Narrative Sony Becerril, FORESTRY PILOT-BASEBALL INSPECTOR AND REPAIRER - 05/20/2022 10:12 AM CDT Sony Becerril, FORESTRY PILOT-BASEBALL INSPECTOR AND REPAIRER ? 05/20/2022 10:13 AM Neuraxial Block Note [...] ??midline Skin was localized? ??Nursing documentation on [facility] Skin localized with: ??Lidocaine 1% and 2 mL Spinal Block: ?? Needle Type: ??spinal needle Needle Gauge: ??22 Needle Length: ??90 mm Placement Site: ??L3-4 Number of Attempts: ??2 CSF: ??free flow, aspiration before injection Local anesthetics used? ??Nursing documentation on the [facility] Spinal Local Anesthetic: ? Bupivacaine: ??0.75% in [...] ??14 Staff: ?? Anesthesia Provider: ??Sony Becerril APRN-BASEBALL INSPECTOR AND REPAIRER Provider #1: ??Trino Feliciano, HUGH ?? - [...] (Bezet) 451 ms [facility] MUSE Calculated P Christine 37 degrees [facility] M[facility] Calculated R Christine 59 degrees [facility] Calculated T Christine 51 degrees [facility] Interpretation EKG Normal [...] - 0.08 x10E9/L 04/09/2022 12:24 PM CDT [facility] Immature Granulocytes Absolute 0.03 0.00 - 0.06 x10E9/L 04/09/2022 12:24 PM CDT [facility] nRBC Auto 0 /100 WBC 04/09/2022 12:24 PM CDT [facility] Blood BLOOD SPECIMEN / Unknown Venipuncture / Unknown 04/09/2022 12:12 PM CDT 04/09/2022 12:19 PM CDT Hailey K Nemesio FORESTRY PILOT-SUPERVISOR [facility] HEMATO LOGY ORDERABLES [facility] [address] [place] [address] * (ABNORMAL) COMPREHENSIVE METABOLIC PANEL (04/09/2022 12:12 PM CDT) Glucose 95 70 - 105 mg/dL 04/09/2022 12:41 PM CDT [facility] Sodium 140 136 - 145 mmol/L 04/09/2022 12:41 PM CDT [facility] Potassium 4.1 3.5 - 5.1 mmol/L 04/09/2022 12:41 PM CDT [facility] Chloride 106 98 - 107 mmol/L 04/09/2022 12:41 PM CDT [facility] CO2 27 23 - 31 mmol/L 04/09/2022 12:41 PM CDT [facility] Calcium 9.3 8.4 - 10.4 mg/dL 04/09/2022 12:41 PM CDT [facility] Anion Gap 7(L) 8 - 18 mmol/L 04/09/2022 12:41 PM CDT [facility] BUN 14 9.8 - 20.1 mg/dL 04/09/2022 12:41 PM CDT [facility] Creatinine 0.67 0.57 - 1.11 mg/dL 04/09/2022 12:41 PM CDT [facility] Alkaline Phosphatase 128 40 - 150 U/L 04/09/2022 12:41 PM CDT [facility] ALT 17 0 - 61 U/L 04/09/2022 12:41 PM CDT [facility] AST 20 5 - 34 U/L 04/09/2022 12:41 PM CDT [facility] Protein Total 7.4 6.4 - 8.3 gm/dL 04/09/2022 12:41 PM CDT [facility] Albumin 4.5 3.5 - 5.2 gm/dL 04/09/2022 12:41 PM CDT [facility] Bilirubin Total 0.6 0.2 - 1.2 mg/dL 04/09/2022 12:41 PM CDT [facility] eGFR by CKD-EPI >90 >=90 mL/min/1.7 3 m2 04/09/2022 12:41 PM CDT [facility] Blood BLOOD SPECIMEN / Unknown Venipuncture / Unknown 04/09/2022 12:12 PM CDT 04/09/2022 12:19 PM CDT Hailey Herr FORESTRY PILOT-SUPERVISOR [employer] [facility] - CHEMIS TRY ORDERABLES [facility] [address] [place] [address] * XR KNEE BILAT 3VW (04/20/2018 3:26 PM CDT) Anatomical Region Laterality Modality Lower Extremity Computed Radiogr aphy Narrative 04/20/2018 5:22 PM CDT Park Catherine, RT(R) ? 04/20/2018 ??5:22 PM See Chart For Xray Report Elicia Bravo PA-C DIAGNOSTIC IM AGING ORDERABLES Care Teams Demographer Relationship Specialty Start Date End Date Eliceo Yancey MD [address] [place] [address] PCP - General Family Medicine 01/27/18 Rodrí[place] [address] [place] [address] Orthopedic Surgery 01/27/18
--- OUTSIDE RECORDS SUMMARY | 2024-09-05 13:16 | XMS_ITS | Referral Summary ---
Author Organization [facility] [employer] Address [address] [place] [address] Care Team Providers Care Automatic Punch Press Operator Name Role Phone Eliceo Yancey MD Primary Care Provider [phone] Rodríguez Howard MD Unavailable [phone] Source Comments [facility],non-owned Affiliates and Associated Physician Practices is amultiple site organization consisting of ambulatory clinics and hospital sitesin [place], [place] and [place]. This disclosure is being madepursuant to the Care Everywhere program and may not contain all information available regarding this patient. Last updated 18.[facility] Allergies Active Allergy Reactions Criticality Noted Date [...] on file Medical Devices Implanted Type Area Lead Cook Device Identifier Shelf Expiration Date Model / Serial / Lot Cmnt Bone Djo Srg Cblt 40gm Hvisc Strl Implanted:Qty: 1 on 05/20/2022 by Rodríguez Howard MD at [facility] Right: Knee [employer] 02/11/2023 600-15-000 / / [id number] Tray Tib 67mm Kn Cocr I Beam Implanted:Qty: 1 on 05/20/2022 by Rodríguez Howard MD at [facility] Right: Knee [employer] 02/10/2032 [id number] / / [id number] Cmpnt Fem Kn Rt Cr Cmnt Prm Vngrd Intlk Implanted:Qty: 1 on 05/20/2022 by Rodríguez Howard MD at [facility] Right: Knee [employer] 06/28/2025 [id number] / / [id number] Cmpnt Ptlr Std 28mm 3 Pg Kn Ser A Implanted:Qty: 1 on 05/20/2022 by Rodríguez Howard MD at [facility] Right: Knee [employer] 06/03/2026 [id number] / / [id number] Vngrd Arcm Kn Ant Stab Implanted:Qty: 1 on 05/20/2022 by Rodríguez Howard MD at [facility] Right: Knee [employer] 03/31/2027 [id number] / / [id number] Advance Directives * Full Code (Latest Code Status on File) Date Activated Date Inactivated Comments 05/20/2022 12:37 PM 05/21/2022 2:37 PM Care Teams Automatic Punch Press Operator Relationship Specialty Start Date End Date Eliceo Yancey MD [address] [place] [address] PCP - General Family Medicine 01/27/18 Rordí[place] [address] [address] Orthopedic Surgery 01/27/18
--- OUTSIDE RECORDS SUMMARY | 2024-09-05 13:16 | XMS_ITS | Referral Summary ---
Author Organization [facility] Address [address] [place] [address] Care Team Providers Care Mailmaster Name Role Phone Eliceo Yancey MD Primary Care Provider Allergies Active Allergy Reactions Criticality Noted Date Comments Nickel Rash Medium 04/21/2021 Tetracycline Urticaria Medium 06/10/2011 Medications sertraline (ZOLOFT) 100 mg tabletIndications :Anxiety with Depression Take 100 mg by mouth nightly 1 Active budesonide-formot Tiffany (SYMBICORT) 160-4.5 mcg/actuation inhalerIndication s:Maintenance Therapy for Asthma,Asthmatic allergies Inhale 2 puffs 2 (two) times a day Rinse mouth with water after use. Do not swallow. (Hit and miss) Active ALPRAZolam (XANAX) 0.5 mg tablet Take 0.5 mg by mouth 3 (three) times a day as needed for anxiety 0 Active cycloSPORINE (Restasis) 0.05 % ophthalmic emulsion Administer 1 drop into both eyes every 12 (twelve) hours 9 Active ipratropium (ATROVENT) 21 mcg (0.03 %) nasal spray Administer 2 sprays into each nostril 3 (three) times a day as needed [address] (NexIUM) 40 mg capsuleIndication s:GERD Take 40 mg by mouth nightly Active multivit with calcium,iron,min (WOMEN'S DAILY MULTIVITAMIN ORAL) Take 1 tablet by mouth nightly Active ibuprofen (ADVIL,MOTRIN) 200 mg tab/cap Take 600 mg by mouth every 6 (six) hours as needed for pain Active oxyCODONE-acetami nophen (PERCOCET) 5-325 mg per tabletIndications :Pain Take 1-2 tablets by mouth every 4 (four) hours as needed for pain 40 tablet 1 Active rosuvastatin (CRESTOR) 20 mg tablet Take 20 mg by mouth daily 1 Active azithromycin (ZITHROMAX) 250 mg tablet 2 Active Active Problems Problem Noted Date Diagnosed Date Complete rupture of rotator cuff 04/21/2021 Overview (04/21/2021): Added automatically from request for surgery [id number] Primary osteoarthritis of both knees 04/20/2018 Primary osteoarthritis of right knee 01/27/2018 Knee pain, right 12/23/2017 Social History Tobacco Use Types Packs/Day Years Used Date Smoking Tobacco: Every Day Cigarettes Smokeless Tobacco: Never AUDIT-C Answer Date Recorded Q1: How often do you have a drink containing alc ohol? Monthly or less 04/27/2021 Q2: How many drinks containi ng alcohol do you have on a typical day when you are drinking? 1 or 2 04/27/2021 Q3: How often do you have si x or more drinks on one occasion? 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 Gender Identity Not on file Sexual Orientation Not on file Last Filed Vital Signs Vital Sign Reading Time Taken Comments Blood Pressure 129/85 12/27/2021 3:45 PM CDT Pulse 58 12/27/2021 3:45 PM CDT Temperature 36.8 ??C (98.3 ??F) 12/27/2021 3:45 PM CD T Respiratory Rate 16 12/27/2021 3:45 PM CDT Oxygen Saturation 99% 12/27/2021 3:45 PM CDT Inhaled Oxygen Concentration - - Weight 64.4 kg (142 lb) 12/27/2021 3:45 PM CDT Height 157.5 cm (5' 2 ) 12/27/2021 3:45 PM CDT Body Mass Index 25.97 12/27/2021 3:45 PM CDT Plan of Treatment Not on file Medical Devices Implanted Type Area Skin Carver Device Identifier Shelf Expiration Date Model / Serial / Lot Ar[employer] Inc Ar-1927bct Corkscrew Suturetape 5.5mm 14.7mm Bioabsorbable Full Thread 1.3mm - [id number] Implanted:Qty: 1 on 04/27/2021 by Carlos Lacy MD at [facility] Right: Shoulder [employer] 12/29/2022 AR-1927BCT / / [id number] Ar[employer] Ar-2324bcc Swivelock C 4.75mm 19.1mm Closed Eyelet Vent Ingalls Suture - [id number] Implanted:Qty: 1 on 04/27/2021 by Carlos Lacy MD at [facility] Right: Shoulder [employer] 09/28/2024 AR-2324BCC / / [id number] Insurance [employer] OOS [employer] OOS ANTHEM ACCESS BLUE ACCESS OOS Care Teams Mailmaster Relationship Specialty Start Date End Date Eliceo Yancey MD [facility] - General 12/23/17
--- OUTSIDE RECORDS SUMMARY | 2024-09-05 13:16 | XMS_ITS | Continuity of Care Document ---
Author Organization [facility] Address [address] [place] [address] [place] [address] Phone Care Team Providers Care Mucker Operator Name Role Phone Ronald Purdy Unavailable Unavailable Procedures Procedure Date Eye Exam & Treatment Refraction Office/outpatient Visit, New Advance Directives Directive Yes / No Effective Date File Name No Information Encounters Encounter Description Practice Location Reason(s) For Visit Diagnoses Date Provider Providers Copied on Encounter [facility], [address] [place] [address] [address], [place], [place], [id number], tel:[phone] [facility] No Information [address]. [address] , [address], [place], [address], [place]. tel:[phone] Office/outpat ient Visit, [facility], [address] [place] [address] [address], [place], [place], [id number], tel:[phone] [facility] No Information [address]as. [address], [address], [place], [address], [place]. tel:[phone] Family History Family Member Type Diagnosis Age At Onset No Information Payers Payer name Insurance type Covered democrat ID [facility] [id number] Social History Type Description Quantity Date Captured [...]
--- OUTSIDE RECORDS SUMMARY | 2024-09-05 13:16 | XMS_ITS | Clinical Summary ---
Author Organization [facility] Address [facility] [place] [address] Care Team Providers Care Cashier Courtesy Booth Name Role Phone Unavailable Primary Care Provider [...] Vaccines (1 of 2) 10/30/2013 COVID-19 Vaccine (2023-2 5 season) 2024 Influenza Adult (#1) 2024 [...]
--- OUTSIDE RECORDS SUMMARY | 2024-09-05 13:16 | XMS_ITS | Encounter Summary ---
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 Gender Identity Not on file Sexual Orientation Not on file documented as of this encounter Plan of Treatment Not on file documented as of this encounter Procedures Procedure Name Priority Date/Time Associated Diagnosis Comments SCAN - RADIOLOGY/IMAGING 04/27/2023 documented in this encounter Results * SCAN - RADIOLOGY/IMAGING (04/27/2023) Anatomical Region Laterality Modality Other us Provider Scanning Final Result documented in this encounter Visit Diagnoses Not on filedocumented in this encounter Care Teams Hebrew Teacher Relationship Specialty Start Date End Date Eliceo Yancey MD PCP - General 12/23/17 documented as of this encounter
--- OUTSIDE RECORDS SUMMARY | 2024-09-05 13:16 | XMS_ITS | Clinical Summary ---
Author Organization [facility] Care Team Providers Care Jigsawyer Name Role Phone Unavailable Primary Care Provider [...]
--- OUTSIDE RECORDS SUMMARY | 2024-09-05 13:16 | XMS_ITS | Clinical Summary ---
Author Organization [facility] Address [address] [place] [address] Care Team Providers Care Systems Management Consultant Name Role Phone Eliceo Yancey MD Primary [...] (04/21/2021): Added automatically from request for surgery [id number] Primary osteoarthritis of both knees 04/20/2018 Primary osteoarthritis of right knee 01/27/2018 Knee pain, right 12/23/2017 Surgical History Surgery Date Site/Laterality Comments TUBAL LIGATION 08/01/1995 - 07/31/1996 CHOLECYSTECTOMY 08/01/2008 - 07/31/2009 URETHRAL SLING 08/01/2013 - 07/31/2014 Medical History Medical History Date Comments Motion sickness Family History Medical History Relation Name Comments Lung disease Father Family history of lung disease - (Added by TW Conv) Arthritis Mother Family history of arthritis - (Added by TW Conv) Lung disease Mother Family history of lung disease - (Added by TW Conv) Anesthesia problems Neg Hx Relation Name Status Comments Father Mother Social History Tobacco Use Types Packs/Day Years [...] on file 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 Gender Identity Not on file Sexual Orientation Not on file Obstetrics History Last Filed Vital Signs Vital Sign Reading [...] 12/27/2021 3:45 PM CDT Plan of Treatment Health Maintenance Due Date Last Done Comments Breast Cancer Screening-Mammogram 1965 Cervical Cancer Screening 1963 Colon Cancer Screening-Colonoscopy 1965 Depression Screening 1963 Hepatitis C Screening 1963 Pneumococcal vaccine <65 (1 of 2 - PCV) 10/30/1969 Hepatitis B Screening 10/30/1981 Regular Well Visit/Exam 18-64 10/30/1981 Zoster Vaccine (1 of 2) 10/30/2013 Covid-19 Vaccine (3 - season) 2024, 09/25/2020 Influenza Vaccine (#1) 2024 DTaP/Tdap/Td Vaccine (2 - Td or Tdap) 06/27/2028 Medical Devices Implanted Type Area Children Counselor Device Identifier Shelf Expiration Date Model / Serial / Lot Ar[employer]rex Inc Ar-1927bct Corkscrew Suturetape 5.5mm 14.7mm Bioabsorbable Full Thread 1.3mm - [id number] Implanted:Qty: 1 on 04/27/2021 by Carlos Lacy MD at [facility] Right: Shoulder [employer] 12/29/2022 AR-1927BCT / / [id number] Ar[employer] Ar-2324bcc Swivelock C 4.75mm 19.1mm Closed Eyelet Vent Frederic Suture - [id number] Implanted:Qty: 1 on 04/27/2021 by Carlos Lacy MD at [facility] Right: Shoulder [employer] 09/28/2024 AR-2324BCC / / [id number] Insurance BLUE ACCESS OOS BLUE ACCESS OOS ANTHEM ACCESS [employer] OOS Care Teams Systems Management Consultant Relationship Specialty Start Date End Date Eliceo Yancey MD PCP - General 12/23/17
== END 2024-09-05 12:00 | disposition home or self-care (01) ==
PROVIDERS: PCP Family Medicine; Visit Provider Physician Assistant Medical
DX: J20.9 Acute bronchitis, unspecified (principal)
CPT/HCPCS: 71046

== ENCOUNTER 2024-09-19 09:37 | Outpatient (CLI) | payer BC, SELFPAY ==
--- OUTSIDE RECORDS SUMMARY | 2024-09-19 09:43 | XMS_ITS | Clinical Summary ---
Author Organization [facility] Care Team Providers Care Hired Hand Name Role Phone Unavailable Primary Care Provider [...]
--- OUTSIDE RECORDS SUMMARY | 2024-09-19 09:43 | XMS_ITS | Encounter Summary ---
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
--- OUTSIDE RECORDS SUMMARY | 2024-09-19 09:43 | XMS_ITS | Clinical Summary ---
Author Organization [facility] Address [address] [place] [address] Care Team Providers Care Predictive Maintenance Specialist Name Role Phone Eliceo Yancey MD Primary Care Provider [phone] Rodríguez Howard MD Unavailable [phone] Source Comments [facility],non-owned Affiliates and Associated Physician Practices is amultiple site organization consisting of ambulatory clinics and hospital sitesin [place], [place], [place] and [place]. This disclosure is being madepursuant to the Care Everywhere program and may not contain all information available regarding this patient. Last updated 18.[facility] Allergies Active Allergy Reactions Criticality Noted Date [...] 75 05/21/2022 11:14 AM CDT Temperature 36.6 C (97.9 F) 05/21/2022 11:14 AM CDT Respiratory Rate 16 05/21/2022 11:14 AM CDT [...] this topic Medical Devices Implanted Type Area Fitness Trainer Device Identifier Shelf Expiration Date Model / Serial / Lot Cmnt Bone Djo Srg Cblt 40gm Hvisc Strl Implanted:Qty: 1 on 05/20/2022 by Rodríguez Howard MD at [facility] Right: Knee [employer] 02/11/2023 600-15-000 / / [id number] Tray Tib 67mm Kn Cocr I Beam Implanted:Qty: 1 on 05/20/2022 by Rodríguez Howard MD at [facility] Right: Knee [employer] 02/10/2032 [id number] / / [id number] Cmpnt Fem Kn Rt Cr Cmnt Prm Vngrd Intlk Implanted:Qty: 1 on 05/20/2022 by Rodríguez Howard MD at [facility] Right: Knee [employer] 06/28/2025 [id number] / / [id number] Cmpnt Ptlr Std 28mm 3 Pg Kn Ser A Implanted:Qty: 1 on 05/20/2022 by Rodríguez Howard MD at [facility] Right: Knee [employer] 06/03/2026 [id number] / / [id number] Vngrd Arcm Kn Ant Stab Implanted:Qty: 1 on 05/20/2022 by Rodríguez Howard MD at [facility] Right: Knee [employer] 03/31/2027 [id number] / / [id number] Advance Directives * Full Code (Latest Code Status on File) Date Activated Date Inactivated Comments 05/20/2022 12:37 PM 05/21/2022 2:37 PM Care Teams Predictive Maintenance Specialist Relationship Specialty Start Date End Date Eliceo Yancey MD [address] [place] [address] PCP - General Family Medicine 01/27/18 Rodrí[place] [address] [place] [address] Orthopedic Surgery 01/27/18
--- OUTSIDE RECORDS SUMMARY | 2024-09-19 09:43 | XMS_ITS | Clinical Summary ---
Author Organization [facility] Address [facility] [place] [address] Care Team Providers Care Manager Science Name Role Phone Unavailable Primary Care Provider [...]
--- OUTSIDE RECORDS SUMMARY | 2024-09-19 09:43 | XMS_ITS | Referral Summary ---
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 Gender Identity Not on file Sexual Orientation Not on file Last Filed Vital Signs Vital Sign Reading Time Taken Comments Blood Pressure 129/85 12/27/2021 3:45 PM CDT Pulse 58 12/27/2021 3:45 PM CDT Temperature 36.8 C (98.3 F) 12/27/2021 3:45 PM CDT Respiratory Rate 16 12/27/2021 3:45 PM CDT Oxygen Saturation 99% 12/27/2021 3:45 PM CDT Inhaled Oxygen Concentration - - Weight 64.4 kg (142 lb) 12/27/2021 3:45 PM CDT Height 157.5 cm (5' 2 ) 12/27/2021 3:45 PM CDT Body Mass Index 25.97 12/27/2021 3:45 PM CDT Plan of Treatment Not on file Medical Devices Implanted Type Area Caustic Preparer Device Identifier Shelf Expiration Date Model / Serial / Lot Ar[employer]rex Inc Ar-1927bct Corkscrew Suturetape 5.5mm 14.7mm Bioabsorbable Full Thread 1.3mm - [id number] Implanted:Qty: 1 on 04/27/2021 by Carlos Lacy MD at [facility] Right: Shoulder [employer] Inc 12/29/2022 AR-1927BCT / / [id number] Ar[employer] Ar-2324bcc Swivelock C 4.75mm 19.1mm Closed Eyelet Vent [place] Suture - [id number] Implanted:Qty: 1 on 04/27/2021 by Carlos Lacy MD at [facility] Right: Shoulder [employer] 09/28/2024 AR-[id number] / / [id number] Insurance Comfort Line OOS Comfort Line OOS ANTHEM ACCESS TripleLift ACCESS OOS Care Teams Nutritional Chemist Relationship Specialty Start Date End Date Elieco Yancey MD [facility] - General 12/23/17
--- OUTSIDE RECORDS SUMMARY | 2024-09-19 09:43 | XMS_ITS | Continuity of Care Document ---
Author Organization [facility] Address [address] [place] [address] [address] [place] [address] Phone Care Team Providers Care Waste Machine Offbearer Name Role Phone Ronald Purdy Unavailable Unavailable Procedures Procedure Date Eye Exam & Treatment Refraction Office/outpatient Visit, New Advance Directives Directive Yes / No Effective Date File Name No Information Encounters Encounter Description Practice Location Reason(s) For Visit Diagnoses Date Provider Providers Copied on Encounter [facility], [address] [place] [address] [address], [place], [place], [id number], tel:[phone] SEC [facility] No Information [address] Rajwinder Cardenas. [address] [facility] , [address], [place], [address], [place]. tel:[phone] Office/outpat ient Visit, [facility], [address] [place] [address] [address], [place], [place], [address], tel:[phone] SEC [facility] No Information [address]inder Cardenas. [address] [facility] [address], [address], [place], [address], [place]. tel:[phone] Family History Family Member Type Diagnosis Age At Onset No Information Payers Payer name Insurance type Covered alliance party ID Authoriza tialiyah(s) [facility] [id number] Social History Type Description Quantity Date Captured [...]
--- OUTSIDE RECORDS SUMMARY | 2024-09-19 09:43 | XMS_ITS | Clinical Summary ---
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 Gender Identity Not on file Sexual Orientation [...] Tdap) 06/27/2028 Medical Devices Implanted Type Area Sizing Machine And Drier Operator Device Identifier Shelf Expiration Date Model / Serial / Lot Ar[employer]rex Inc Ar-1927bct Corkscrew Suturetape 5.5mm 14.7mm Bioabsorbable Full Thread 1.3mm - [id number] Implanted:Qty: 1 on 04/27/2021 by Carlos Lacy MD at [facility] Right: Shoulder [employer] 12/29/2022 AR-1927BCT / / [id number] [employer] Ar-2324bcc Swivelock C 4.75mm 19.1mm Closed Eyelet Vent [place] Suture - [id number] Implanted:Qty: 1 on 04/27/2021 by Carlos Lacy MD at [facility] Right: Shoulder [employer] 09/28/2024 AR-2324BCC / / [id number] Insurance BLUE ACCESS OOS BLUE ACCESS OOS ANTHEM ACCESS [employer] OOS Care Teams Fairmont Gold Attendant Relationship Specialty Start Date End Date Eliceo Yancey MD PCP - General 12/23/17
--- OUTSIDE RECORDS SUMMARY | 2024-09-19 09:43 | XMS_ITS | Patient Health Summary ---
Author Organization [facility] Address [address] [place] [address] Care Team Providers Care Sales Representative Can[employer] Products Name Role Phone Eliceo Yancey MD Primary Care Provider [phone] Rodríguez Howard MD Unavailable [phone] Note from [facility],non-owned Affiliates and Associated Physician Practices is amultiple site organization consisting of ambulatory clinics and hospital sitesin [place], [place], [place] and [place]. This disclosure is being madepursuant to the Care Everywhere program and may not contain all information available regarding this patient. Last updated 18.[facility] Allergies * Nickel(Rash) -Medium Criticality * Tetracycline(Urticaria) [...] AM CDT Medical Devices Implanted Type Area Notch Machine Operator Device Identifier Shelf Expiration Date Model / Serial / Lot Cmnt Bone Djo Srg Cblt 40gm Hvisc Strl Implanted:Qty: 1 on 05/20/2022 by Rodríguez Howard MD at [facility] Right: Knee [employer] 02/11/2023 600-15-000 / / [id number] Tray Tib 67mm Kn Cocr I Beam Implanted:Qty: 1 on 05/20/2022 by Rodríguez Howard MD at [facility] Right: Knee [employer] 02/10/2032 [id number] / / [id number] Cmpnt Fem Kn Rt Cr Cmnt Prm Vngrd Intlk Implanted:Qty: 1 on 05/20/2022 by Rodríguez Howard MD at [facility] Right: Knee [employer] 06/28/2025 [id number] / / [id number] Cmpnt Ptlr Std 28mm 3 Pg Kn Ser A Implanted:Qty: 1 on 05/20/2022 by Rodríguez Howard MD at [facility] Right: Knee [employer] 06/03/2026 [id number] / / [id number] [id number] Vngrd Arcm Kn Ant Stab Implanted:Qty: 1 on 05/20/2022 by Rodríguez Howard MD at [facility] Right: Knee [employer] 03/31/2027 [id number] / / [id number] Procedures * XR KNEE RIGHT 3VW(Performed 07/08/2022) Performed for Aftercare following right knee joint replacement surgery * NEURAXIAL BLOCK(Performed 05/20/2022) * ND TOTAL KNEE REPLACEMENT(Performed 05/20/2022) * EKG 12-LEAD(Performed [...] XR KNEE RIGHT 3VW (07/08/2022 2:53 PM DEPUTY SHERIFF) Only the most recent of2 resultswithin the time period is included. Anatomical Region Laterality Modality Lower Extremity Computed Radiogr aphy Narrative 07/08/2022 2:54 PM DEPUTY SHERIFF Krystin Vera RT(R) 07/16/2022 4:25 PM See progress notes for results Rodríguez Howard MD DIAGNOSTIC IMAGING O ROB * Neuraxial Block (05/20/2022 10:12 AM CDT) Narrative Sony Becerril APRN-CRNA - 05/20/2022 10:12 AM CDT Sony Becerril APRN-CRNA 05/20/2022 10:13 AM Neuraxial Block Note Pre-Procedure: Procedure Name: Neuraxial Block Patient Location: OR Indications: surgical anesthesia Pre-Anesthetic Checklist: Patient identified, IV Checked, Risks and benefits discussed, Surgical consent verified, Monitors and equipment, Site examined, Pre-op evaluation done, Informed consent obtained, Questions answered/anesthesia questions answered and Allergies reviewed Anticoagulation/ Anti-thrombosis status confirmed? Yes Supplemental O2: room air Monitors: BP and continuous pluse ox Patient Condition: sedated, meaningful contact maintained throughout procedure Patient Sedated? Nursing sedation administration Sedation Type: mild Sedation Agents (manual): versed fentanyl mL Procedure: Block Type: Spinal Prep: Betadine Sterile Field: mask, cap/hat, sterile established and sterile gloves Approach: midline Skin was localized? Nursing documentation on [facility] Skin localized with: Lidocaine 1% and 2 mL Spinal Block: Needle Type: spinal needle Needle Gauge: 22 Needle Length: 90 mm Placement Site: L3-4 Number of Attempts: 2 CSF: free flow, aspiration before injection Local anesthetics used? Nursing documentation on the [facility] Spinal Local Anesthetic: Bupivacaine: 0.75% in dextrose 1.7 mL Degree of difficulty: none Procedure Tolerance: tolerated well performed while the patient was sedated Sensory Level: lower level Motor Blockade: Yes Position post procedure: supine Vital Signs: Vital signs monitored and stable throughout. See anesthesia record for details. Start Time: 05/20/2022 9:37 AM End Time: 05/20/2022 9:51 AM Total Time: 14 Staff: Anesthesia Provider: Sony Becerril APRN-CRNA Provider #1: Trino Feliciano RN - performed the procedure Deandre Orozco MD GENERAL ANESTHESIA O ROB * EKG 12-LEAD (04/09/2022 12:31 PM CDT) Ventricular Rate 75 BPM [facility] Atrial Rate 75 BPM [facility] P-R Interval 116 ms [facility] QRS Duration ms 78 ms [facility] Q-T Interval ms 404 ms [facility] QTC Calculation (Bezet) 451 ms [facility] Calculated P Conifer 37 degrees [facility] Calculated R Conifer 59 degrees [facility] Calculated T Conifer 51 degrees [facility] Interpretation EKG Normal sinus rhythm Normal ECG No previous ECGs available Confirmed by JEANNE STANFORD MD ([id number]) on 04/12/2022 7:51:32 PM [facility] 04/09/2022 12:3 1 PM CDT 04/12/2022 7:51 PM CDT Joie Barrett DO ECG ORDERABLES [facility] * (ABNORMAL) CBC W AUTO DIFFERENTIAL (04/09/2022 12:12 PM CDT) Pathologist [facility] WBC 9.3 4.4 - 10.7 x10E9/L 04/09/2022 12:24 PM CDT [facility] WBC Corrected 04/09/2022 12:24 PM CDT [facility] RBC 5.27(H) 3.80 - 5.20 x10E12/L 04/09/2022 12:24 PM CDT [facility] Hemoglobin 13.4 12.0 - 15.6 gm/dL 04/09/2022 12:24 PM CDT [facility] Hematocrit 43.0 35.9 - 45.5 % 04/09/2022 12:24 PM CDT [facility] MCV 81.6 80.7 - 98.3 fl 04/09/2022 12:24 PM CDT [facility] MCH 25.4(L) 26.7 - 34.0 pg 04/09/2022 12:24 PM CDT [facility] MCHC 31.2 30.8 - 35.9 gm/dL 04/09/2022 12:24 PM CDT [facility] Platelet Count 302 153 - 416 [...] - 0.08 x10E9/L 04/09/2022 12:24 PM CDT [facility] Immature Granulocytes Absolute 0.03 0.00 - 0.06 x10E9/L 04/09/2022 12:24 PM CDT [facility] nRBC Auto 0 /100 WBC 04/09/2022 12:24 PM CDT [facility] Blood BLOOD SPECIMEN / Unknown Venipuncture / Unknown 04/09/2022 12:12 PM CDT 04/09/2022 12:19 PM CDT Hailey Herr CREPE MACHINE OPERATOR-DESK CLERKS SUPERVISOR LAB - HEMATO LOGY ORDERABLES [facility] [address] [place] [address] * (ABNORMAL) COMPREHENSIVE METABOLIC PANEL (04/09/2022 12:12 PM CDT) Glucose 95 70 - 105 mg/dL 04/09/2022 12:41 PM CDT [facility] Sodium 140 136 - 145 mmol/L 04/09/2022 12:41 PM CDT [facility] Potassium 4.1 3.5 - 5.1 mmol/L 04/09/2022 12:41 PM CDT [facility] Chloride 106 98 - 107 mmol/L 04/09/2022 12:41 PM CDT [facility] CO2 27 23 - 31 mmol/L 04/09/2022 12:41 PM CDT [facility] Calcium 9.3 8.4 - 10.4 mg/dL 04/09/2022 12:41 PM CDT [facility] Anion Gap 7(L) 8 - 18 mmol/L 04/09/2022 12:41 PM CDT [facility] BUN 14 9.8 - 20.1 mg/dL 04/09/2022 12:41 PM CDT [facility] Creatinine 0.67 0.57 - 1.11 mg/dL 04/09/2022 12:41 PM CDT [facility] Alkaline Phosphatase 128 40 - 150 U/L 04/09/2022 12:41 PM CDT [facility] ALT 17 0 - 61 U/L 04/09/2022 12:41 PM CDT [facility] AST 20 5 - 34 U/L 04/09/2022 12:41 PM CDT [facility] Protein Total 7.4 6.4 - 8.3 gm/dL 04/09/2022 12:41 PM CDT [facility] Albumin 4.5 3.5 - 5.2 gm/dL 04/09/2022 12:41 PM CDT [facility] Bilirubin Total 0.6 0.2 - 1.2 mg/dL 04/09/2022 12:41 PM CDT [facility] eGFR by CKD-EPI >90 >=90 mL/min/1.7 3 m2 04/09/2022 12:41 PM CDT [facility] Blood BLOOD SPECIMEN / Unknown Venipuncture / Unknown 04/09/2022 12:12 PM CDT 04/09/2022 12:19 PM CDT Hailey Herr CREPE MACHINE OPERATOR-DESK CLERKS SUPERVISOR LAB - CHEMIS TRY ORDERABLES [facility] [address] [place] [address] * XR KNEE BILAT 3VW (04/20/2018 3:26 PM CDT) Anatomical Region Laterality Modality Lower Extremity Computed Radiogr aphy Narrative 04/20/2018 5:22 PM CDT Park Catherine, RT(R) 04/20/2018 5:22 PM See Chart For Xray Report Elicia Bravo PA-C DIAGNOSTIC IM AGING ORDERABLES Care Teams Sales Representative [employer] Relationship Specialty Start Date End Date Eliceo Yancey MD [address] [place] [address] PCP - General Family Medicine 01/27/18 [place]rí[place] [address] [address] [place] [address] Orthopedic Surgery 01/27/18
--- OUTSIDE RECORDS SUMMARY | 2024-09-19 09:43 | XMS_ITS | Referral Summary ---
Author Organization [facility] Address [address] [place] [address] Care Team Providers Care Machine Stacker Name Role Phone Eliceo Yancey MD Primary Care Provider [phone] Rodríguez Howard MD Unavailable [phone] Source Comments [facility],non-owned Affiliates and Associated Physician Practices is amultiple site organization consisting of ambulatory clinics and hospital sitesin [place], [place], [place] and [place]. This disclosure is being madepursuant to the Care Everywhere program and may not contain all information available regarding this patient. Last updated 18.[facility] Allergies Active Allergy Reactions Criticality Noted Date [...] on file Medical Devices Implanted Type Area Wire Stitcher Operator Device Identifier Shelf Expiration Date Model / Serial / Lot Cmnt Bone Djo Srg Cblt 40gm Hvisc Strl Implanted:Qty: 1 on 05/20/2022 by Rodríguez Howard MD at [facility] Right: Knee [employer] 02/11/2023 600-15-000 / / [id number] Tray Tib 67mm Kn Cocr I Beam Implanted:Qty: 1 on 05/20/2022 by Rodríguez Howard MD at [facility] Right: Knee [employer] 02/10/2032 [id number] / / [id number] Cmpnt Fem Kn Rt Cr Cmnt Prm Vngrd Intlk Implanted:Qty: 1 on 05/20/2022 by Rodríguez Howard MD at [facility] Right: Knee [employer] 06/28/2025 [id number] / / [id number] Cmpnt Ptlr Std 28mm 3 Pg Kn Ser A Implanted:Qty: 1 on 05/20/2022 by Rodríguez Howard MD at [facility] Right: Knee [employer] 06/03/2026 [id number] / / [id number] Vngrd Arcm Kn Ant Stab Implanted:Qty: 1 on 05/20/2022 by Rodríguez Howard MD at [facility] Right: Knee [employer] 03/31/2027 [id number] / / [id number] Advance Directives * Full Code (Latest Code Status on File) Date Activated Date Inactivated Comments 05/20/2022 12:37 PM 05/21/2022 2:37 PM Care Teams Machine Stacker Relationship Specialty Start Date End Date Eliceo Yancey MD [address] [place] [address] PCP - General Family Medicine 01/27/18 Rodrí[place] [address] [address] Orthopedic Surgery 01/27/18
--- NOTE | 2024-09-20 11:21 | WPDPFTINT ---
PFT Procedure Performed PFT Procedure Performed Spirometry with Pre/Post Bronchodilator Plethysmography (Lung Vol) Diffusing Cap (DLCO) Flow Vol Loop PFT Interpretation Lung volumes were measured with the body plethysmography method. The elevated residual volume and FRC could indicate air trapping. The remaining lung volumes are unremarkable. Spirometry showed diminished expiratory flow rates and a diminished FEV1 to FVC ratio of 53%, indicative of obstructive airway disease. Following administration of a bronchodilator there was significant increase in the expiratory flow rates. Lung diffusion capacity is moderately reduced at 55% predicted. This diminished lung diffusion capacity coupled with a low alveolar volume and a borderline normal DLCO/VA ratio suggests loss of alveolar capillary structure with loss of lung volume as seen in emphysema or interstitial lung disease. Impression: Moderate obstructive airway disease with evidence of air trapping and significant response to bronchodilators on this testing. Moderately reduced lung diffusion capacity.
== END 2024-09-19 09:38 | disposition home or self-care (01) ==
LOC: ANHPFT 09:39
PROVIDERS: PCP Family Medicine; Visit Provider Nurse Practitioner Adult Health
DX: R94.2 Abnormal results of pulmonary function studies (principal); R09.89 Other specified symptoms and signs involving the circulatory and respiratory systems
CPT/HCPCS: 94060; 94375; 94726; 94729

== ENCOUNTER 2024-10-16 12:52 | Outpatient (CLI) | payer BC, SELFPAY ==
--- NOTE | 2024-10-16 13:05 | ECG_ITS ---
Test Date: 2024-10-16 13:15:22 Measurements Intervals [place] Rate: 113 P: 72 [place]: 147 QRS: 54 QRSD: 88 T: -65 QT: 280 QTc: 384 Interpretive Statements SINUS TACHYCARDIA SEPTAL MYOCARDIAL INFARCTION [40+ ms Q WAVE IN V1/V2], OF INDETERMINATE AGE MODERATE T-WAVE ABNORMALITY, CONSIDER INFERIOR ISCHEMIA [-0.1+ mV T WAVE IN II/aVF] ABNORMAL ECG No previous ECG available for comparison Electronically Signed On 10-17-2024 12:09:02 CDT by Jaylen Vinson M.D.
--- OUTSIDE RECORDS SUMMARY | 2024-10-16 14:14 | XMS_ITS | Clinical Summary ---
Author Organization [facility] Care Team Providers Care Investment Trader Name Role Phone Unavailable Primary Care Provider [...]
--- OUTSIDE RECORDS SUMMARY | 2024-10-16 14:14 | XMS_ITS | Continuity of Care Document ---
Author Organization [facility] Address [address] [place] [address] [address] [place] [address] Phone Care Team Providers Care [place] Maori Name Role Phone Ronald Purdy Unavailable Unavailable Procedures Procedure Date Eye Exam & Treatment Refraction Office/outpatient Visit, New Advance Directives Directive Yes / No Effective Date File Name No Information Encounters Encounter Description Practice Location Reason(s) For Visit Diagnoses Date Provider Providers Copied on Encounter [facility], [address] [place] [address] [address], [place], [place], [address], tel:[phone] SEC [facility] No Information [address] Rajwinder Cardenas. [address] [facility] , [address], [place], [address], [place]. tel:[phone] Office/outpat ient Visit, [facility], [address] [place] [address] [address], [place], [place], [address], tel:[phone] SEC [facility] No Information [address] Rajwinder Cardenas. [address] [facility] [address], [address], [place], [address], [place]. tel:[phone] Family History Family Member Type Diagnosis Age At Onset No Information Payers Payer name Insurance type Covered constitution party ID Authoriza tialiyah(s) [facility] [id number] Social History Type Description Quantity Date Captured [...]
--- OUTSIDE RECORDS SUMMARY | 2024-10-16 14:14 | XMS_ITS | Clinical Summary ---
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 Gender Identity Not on file Sexual Orientation [...] Depression Screening 1965 Hepatitis C Screening 1965 Hepatitis B Screening 10/30/1981 Regular Well Visit/Exam 18-64 10/30/1981 Pneumococcal vaccine <65 (1 of 2 - PCV) 10/30/1982 Zoster Vaccine (1 of 2) 10/30/2013 Covid-19 Vaccine (3 - season) 2024, 09/25/2020 Influenza Vaccine (#1) 2024 DTaP/Tdap/Td Vaccine (2 - Td or Tdap) 06/27/2028 Medical Devices Implanted Type Area Picker / Packer Device Identifier Shelf Expiration Date Model / Serial / Lot [employer] Ar-1927bct Corkscrew Suturetape 5.5mm 14.7mm Bioabsorbable Full Thread 1.3mm - [id number] Implanted:Qty: 1 on 04/27/2021 by Carlos Lacy MD at [facility] Right: Shoulder [employer] 12/29/2022 AR-1927BCT / / [id number] [employer] Ar-2324bcc Swivelock C 4.75mm 19.1mm Closed Eyelet Vent [place] Suture - [id number] Implanted:Qty: 1 on 04/27/2021 by Carlos Lacy MD at [facility] Right: Shoulder [employer] 09/28/2024 AR-2324BCC / / [id number] Insurance BLUE ACCESS OOS BLUE ACCESS OOS ANTHEM ACCESS [employer] OOS Care Teams Inside Sales Coordinator Relationship Specialty Start Date End Date Eliceo Yancey MD PCP - General 12/23/17
--- OUTSIDE RECORDS SUMMARY | 2024-10-16 14:14 | XMS_ITS | Clinical Summary ---
Author Organization [facility] Address [facility] [place] [address] Care Team Providers Care Jacker Name Role Phone Unavailable Primary Care Provider [...]
--- OUTSIDE RECORDS SUMMARY | 2024-10-16 14:14 | XMS_ITS | Clinical Summary ---
Author Organization [facility] Address [address] [place] [address] Care Team Providers Care Respooler Name Role Phone Eliceo Yancey MD Primary Care Provider [phone] Rodríguez Howard MD Unavailable [phone] Source Comments [facility],non-owned Affiliates and Associated Physician Practices is amultiple site organization consisting of ambulatory clinics and hospital sitesin [place], [place], [place] and [place]. This disclosure is being madepursuant to the Care Everywhere program and may not contain all information available regarding this patient. Last updated 18.[facility] Allergies Active Allergy Reactions Criticality Noted Date [...] complete this topic MENINGOCOCCAL (Group B) VACCINE SHARED DECISION-MAKING Aged Out No longer eligible based on patient's age to complete this topic MENINGOCOCCAL GROUPS A/C/Y/W VACCINE Aged Out No longer eligible b ased on patient's age to complete this topic Medical Devices Implanted Type Area Fire Protection Engineering Technician Device Identifier Shelf Expiration Date Model / Serial / Lot Cmnt Bone Djo Srg Cblt 40gm Hvisc Strl Implanted:Qty: 1 on 05/20/2022 by Rodríguez Howard MD at [facility] Right: Knee [employer] 02/11/2023 600-15-000 / / [id number] Tray Tib 67mm Kn Cocr I Beam Implanted:Qty: 1 on 05/20/2022 by Rodríguez Howard MD at [facility] Right: Knee [employer] 02/10/2032 [id number] / / [id number] Cmpnt Fem Kn Rt Cr Cmnt Prm Vngrd Intlk Implanted:Qty: 1 on 05/20/2022 by Rodríguez Howard MD at [facility] Right: Knee [employer] 06/28/2025 [id number] / / [id number] Cmpnt Ptlr Std 28mm 3 Pg Kn Ser A Implanted:Qty: 1 on 05/20/2022 by Rodríguez Howard MD at [facility] Right: Knee [employer] 06/03/2026 [id number] / / [id number] [id number] Vngrd Arcm Kn Ant Stab Implanted:Qty: 1 on 05/20/2022 by Rodríguez Howard MD at [facility] Right: Knee [employer] 03/31/2027 [id number] / / [id number] Advance Directives * Full Code (Latest Code Status on File) Date Activated Date Inactivated Comments 05/20/2022 12:37 PM 05/21/2022 2:37 PM Care Teams Respooler Relationship Specialty Start Date End Date Eliceo Yancey MD [address] [place] [id number] PCP - General Family Medicine 01/27/18 Rodrí[place] [address] [place] [address] Orthopedic Surgery 01/27/18
--- OUTSIDE RECORDS SUMMARY | 2024-10-16 14:14 | XMS_ITS | Encounter Summary ---
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
--- OUTSIDE RECORDS SUMMARY | 2024-10-16 14:14 | XMS_ITS | Referral Summary ---
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 Gender Identity Not on file Sexual Orientation [...] on file Medical Devices Implanted Type Area Production Support Developer Device Identifier Shelf Expiration Date Model / Serial / Lot [employer] Ar-1927bct Corkscrew Suturetape 5.5mm 14.7mm Bioabsorbable Full Thread 1.3mm - [id number] Implanted:Qty: 1 on 04/27/2021 by Carlos Lacy MD at [facility] Right: Shoulder [employer] 12/29/2022 AR-1927BCT / / [id number] [employer] Ar-2324bcc Swivelock C 4.75mm 19.1mm Closed Eyelet Vent [place] Suture - [id number] Implanted:Qty: 1 on 04/27/2021 by Carlos Lacy MD at [facility] Right: Shoulder [employer] 09/28/2024 AR-2324BCC / / [id number] Insurance Room 8 Studio OOS Room 8 Studio OOS ANTHEM ACCESS [employer] ACCESS OOS Care Teams Industrial Staff Nurse Relationship Specialty Start Date End Date Eliceo Yancey MD [facility] - General 12/23/17
== END 2024-10-16 12:53 | disposition home or self-care (01) ==
LOC: ANHSURGERY 12:55
PROVIDERS: PCP Family Medicine; Visit Provider Otolaryngology Otolaryngology/Facial Plastic Surgery
DX: F17.210 Nicotine dependence, cigarettes, uncomplicated (principal); Z01.818 Encounter for other preprocedural examination; R94.31 Abnormal electrocardiogram [ECG] [EKG]
CPT/HCPCS: 93005

== ENCOUNTER 2024-10-19 00:37 | Day surgery (SDC) | payer BC, SELFPAY ==
[2024-10-10 08:56] VITALS: BMI 27.5
--- NOTE | 2024-10-10 08:58 | PC.NURSE ---
Report to the Outpatient Waiting Room, entrance under the green pavilion located off [facility], at time _0600_ on date _[id number]_. Planned Procedure Time: _0730_.? Time changes happen often and if your time is changed the preop area will call you the afternoon before. - You and your visitor will be asked to self-screen and do not enter if you have any COVID symptoms. Please call surgeon if you need to reschedule. - A mask is optional within the hospital at this time. Patients may have clear liquids (water, carbonated beverages, clear teas, apple juice) until 3 hours prior to surgery with a maximum of 20 ounces. - No food from midnight until time of surgery and no smoking, or chewing tobacco (or any form of nicotine). No chewing gum, candy or mints. Take only the following medications with a SIP of water on the morning of surgery: ___Symbicort, Fluoxetine, Flonase, Restasis and if needed Albuterol and or Alprazolam DO NOT STOP ANY OF YOUR OTHER PRESCRIPTION MEDICATIONS PRIOR TO SURGERY EXCEPT THE FOLLOWING Hold all vitamins and supplements for 3 days per anesthesiologist. Medications to discontinue per physician Date to take last dose Please no make-up, nail hebrew, hairspray, perfume, deodorant, or body powder the day of surgery.? No jewelry (including any body piercings) or valuables the day of surgery, leave them at home.? Please take a shower or bath the night before, or the morning of, surgery with an antibacterial soap.? Wear comfortable, loose fitting clothing.? - Jewelry must be removed prior to entering the operating room.? Rings and piercings that are not removed may be cut off. - The hospital will not accept responsibility for valuables.? - Please leave all valuables, including medications, at home the day of surgery. If you are going home after surgery, a licensed wrecker driver must drive you home.? - NO public transportation without another adult if you receive anesthesia. - We recommend that an adult stay with you for 24 hours following discharge. - We also recommend that you do not drive, make important decision, drink alcoholic beverages, or take any drugs that were not prescribed by your health care provider for at least 24 hours after your discharge time. Follow any additional instructions given to you from your surgeon. Telephone instructions given to __Ramona__and asked if any additional questions and then verbalized understanding. Patient advised to call surgeon office or pre surgery nurse liaison [phone] if any additional questions.
[2024-10-19] VITALS (9 sets, daily range): BP systolic 125–165; BP diastolic 76–106; PULSE 78–94; RESP 12–18; TEMP 36.4–36.6; O2SAT 94–98
--- OUTSIDE RECORDS SUMMARY | 2024-10-19 00:40 | XMS_ITS | Clinical Summary ---
Author Organization [facility] Care Team Providers Care Explosive Ordnance Disposal Technician Name Role Phone Unavailable Primary Care Provider [...]
--- OUTSIDE RECORDS SUMMARY | 2024-10-19 00:40 | XMS_ITS | Clinical Summary ---
Author Organization [facility] Address [address] [place] [address] Care Team Providers Care Cashier Credit Name Role Phone Eliceo Yancey MD Primary Care Provider [phone] Rodríguez Howard MD Unavailable [phone] Source Comments [facility],non-owned Affiliates and Associated Physician Practices is amultiple site organization consisting of ambulatory clinics and hospital sitesin [place], [place], [place] and [place]. This disclosure is being madepursuant to the Care Everywhere program and may not contain all information available regarding this patient. Last updated 18.[facility] Allergies Active Allergy Reactions Criticality Noted Date [...] 50+ (1 of 2 - PCV) 10/30/1982 LUNG [...] this topic Medical Devices Implanted Type Area Manager Bank Device Identifier Shelf Expiration Date Model / Serial / Lot Cmnt Bone Djo Srg Cblt 40gm Hvisc Strl Implanted:Qty: 1 on 05/20/2022 by Rodríguez Howard MD at [facility] Right: Knee [employer] 02/11/2023 600-15-000 / / [id number] Tray Tib 67mm Kn Cocr I Beam Implanted:Qty: 1 on 05/20/2022 by Rodríguez Howard MD at [facility] Right: Knee [employer] 02/10/2032 [id number] / / [id number] Cmpnt Fem Kn Rt Cr Cmnt Prm Vngrd Intlk Implanted:Qty: 1 on 05/20/2022 by Rodríguez Howard MD at [facility] Right: Knee [employer] 06/28/2025 [id number] / / [id number] Cmpnt Ptlr Std 28mm 3 Pg Kn Ser A Implanted:Qty: 1 on 05/20/2022 by Rodríguez Howard MD at [facility] Right: Knee [employer] 06/03/2026 [id number] / / [id number] Brng [id number] Vngrd Arcm Kn Ant Stab Implanted:Qty: 1 on 05/20/2022 by Rodríguez Howard MD at [facility] Right: Knee [employer] 03/31/2027 [id number] / / [id number] Advance Directives * Full Code (Latest Code Status on File) Date Activated Date Inactivated Comments 05/20/2022 12:37 PM 05/21/2022 2:37 PM Care Teams Cashier Credit Relationship Specialty Start Date End Date Eliceo Yancey MD [address] [place] [address] PCP - General Family Medicine 01/27/18 Rodrí[place] [address] [place] [address] Orthopedic Surgery 01/27/18
--- OUTSIDE RECORDS SUMMARY | 2024-10-19 00:40 | XMS_ITS | Clinical Summary ---
Author Organization [facility] Address [facility]ly [facility] [place] [address] Care Team Providers Care Ortho Tech Name Role Phone Unavailable Primary Care Provider [...]
--- OUTSIDE RECORDS SUMMARY | 2024-10-19 00:40 | XMS_ITS | Continuity of Care Document ---
Author Organization [facility] Address [address] [place] [address] [place] [address] Phone Care Team Providers Care Membership Director Name Role Phone Ronald Purdy Unavailable Unavailable Procedures Procedure Date Eye Exam & Treatment Refraction Office/outpatient Visit, New Advance Directives Directive Yes / No Effective Date File Name No Information Encounters Encounter Description Practice Location Reason(s) For Visit Diagnoses Date Provider Providers Copied on Encounter [facility], [address] [place] [address] [address], [place], [place], [id number], tel:[phone] [facility] No Information [address]. [address] [facility] , [address], [place], [address], [place]. tel:[phone] Office/outpat ient Visit, [facility], [address] [place] [address] [address], [place], [place], [id number], tel:[phone] [facility] No Information [address]. [address] [facility] [address], [address], [place], [address], [place]. tel:[phone] Family History Family Member Type Diagnosis Age At Onset No Information Payers Payer name Insurance type Covered republican ID Authoriza tialiyah(s) [facility] [id number] Social History Type Description Quantity Date Captured [...]
--- OUTSIDE RECORDS SUMMARY | 2024-10-19 00:40 | XMS_ITS | Referral Summary ---
Author Organization 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 Gender Identity Not on file Sexual [...] on file Medical Devices Implanted Type Area Blankbook Stitching Machine Operator Device Identifier Shelf Expiration Date Model / Serial / Lot [employer] Ar-1927bct Corkscrew Suturetape 5.5mm 14.7mm Bioabsorbable Full Thread 1.3mm - [id number] Implanted:Qty: 1 on 04/27/2021 by Carlos Lacy MD at [facility] Right: Shoulder [employer] 12/29/2022 AR-1927BCT / / [id number] [employer] Ar-2324bcc Swivelock C 4.75mm 19.1mm Closed Eyelet Vent [place] Suture - [id number] Implanted:Qty: 1 on 04/27/2021 by Carlos Lacy MD at [facility] Right: Shoulder [employer] 09/28/2024 AR-2324BCC / / [id number] Insurance [employer] OOS [employer] OOS ANTHEM ACCESS [employer] ACCESS OOS Care Teams Flat Locker Relationship Specialty Start Date End Date Eliceo Yancey MD [facility] - General 12/23/17
--- OUTSIDE RECORDS SUMMARY | 2024-10-19 00:40 | XMS_ITS | Encounter Summary ---
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
--- OUTSIDE RECORDS SUMMARY | 2024-10-19 00:40 | XMS_ITS | Clinical Summary ---
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 Gender Identity Not on file Sexual Orientation [...] Tdap) 06/27/2028 Medical Devices Implanted Type Area Faculty Head Device Identifier Shelf Expiration Date Model / Serial / Lot [employer] Ar-1927bct Corkscrew Suturetape 5.5mm 14.7mm Bioabsorbable Full Thread 1.3mm - [id number] Implanted:Qty: 1 on 04/27/2021 by Carlos Lacy MD at [facility] Right: Shoulder [employer] 12/29/2022 AR-1927BCT / / [id number] [employer] Ar-2324bcc Swivelock C 4.75mm 19.1mm Closed Eyelet Vent [place] Suture - [id number] Implanted:Qty: 1 on 04/27/2021 by Carlos Lacy MD at [facility] Right: Shoulder [employer] 09/28/2024 AR-2324BCC / / [id number] Insurance BLUE ACCESS OOS BLUE ACCESS OOS ANTHEM ACCESS [employer] OOS Care Teams Cut Off Saw Operator Metal Relationship Specialty Start Date End Date Eliceo Yancey MD PCP - General 12/23/17
--- NOTE | 2024-10-19 05:41 | P.HP_ITS ---
H&P: HPI History of Present Illness Date/Time: 10/19/24 05:41 Chief Complaint: chronic sinusitis Narrative: 58-year-old female smoker coming for evaluation of frequent sinus infections. Patient reports having recurrent sinus infections 5 times in the last year for which she was treated with multiple rounds of antibiotics. she had her last sinus infection was month month ago for which she was treated with oral steroids and antibiotic which helped little bit 2 weeks ago she was seen in [facility] and had a sinus CT scan done. She patient has sinus headache and pressure sensation now Review of Systems Constitutional: Constitutional: Reports as per HPI ENT: Reports as per HPI [facility] Past Medical History Medical History (Updated 10/08/24 @ 13:45 by LAYNE Caceres) Anxiety Encounter for smoking cessation counseling Immunity status testing Hyperinflation of lungs Chronic sinusitis BMI 26.0-26.9,adult URI (upper respiratory infection) Surgical History Surgical History H/O rotator cuff surgery H/O total knee replacement Family History Family History Grandparent Family history of malignant neoplasm Mother Family history of coronary artery disease Dementia Father COPD (chronic obstructive pulmonary disease) Sibling Depression Social History Social History Smoking packs per day: 1 Smoking cigarettes per day: 20.0 Years smoked: 35 Smoking pack-years: 35.00 Smoking status: Current every day smoker Tobacco type: cigarettes Second hand tobacco smoke exposure: Yes Additional smoking assessment comments: Down to 1/2 pack a day. 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 Gender identity (if verbalized by the patient): Female Spiritual care concerns: No Meds Home Medications and Allergies Home Medications ?Medication ?Instructions ?Recorded ?Confirmed ?Type cyclosporine 0.05 % eye drops in a 1 drp EACH EYE BID 04/28/22 10/10/24 History dropperette (Restasis) rosuvastatin 40 mg tablet (Crestor) 40 mg PO DAILY #90 tabs 08/22/23 10/10/24 Rx cholecalciferol (vitamin D3) 50 50 mcg PO DAILY 12/12/23 10/10/24 History mcg (2,000 unit) capsule esomeprazole magnesium 20 mg 20 mg PO DAILY 12/12/23 10/10/24 History capsule,delayed release (Nexium) alprazolam 0.5 mg tablet 0.5 mg PO TID PRN anxiety #60 tabs 02/08/24 10/10/24 Rx albuterol sulfate 90 mcg/actuation 2 puff inhalation Q4H PRN 06/19/24 10/10/24 Rx aerosol inhaler (Ventolin HFA) shortness of breath or wheezing #8.5 grams budesonide-formoterol HFA 160 2 puff inhalation Q12H #10.2 grams 06/25/24 10/10/24 Rx mcg-4.5 mcg/actuation aerosol inhaler (Symbicort) bupropion HCl 150 mg tablet,12 hr 150 mg PO DAILY #30 tabs 09/18/24 10/10/24 Rx sustained-release (Wellbutrin SR) fluoxetine 10 mg capsule 10 mg PO DAILY #30 caps 09/18/24 10/10/24 Rx fluticasone propionate 50 1 spray intranasal DAILY PRN 10/10/24 10/10/24 History mcg/actuation nasal allergy symptoms spray,suspension (24 Hour Allergy Relief) Allergies Allergy/AdvReac Type Severity Reaction Status Date / Time tetracycline Allergy Unknown Unknown Verified 10/10/24 08:44 Exam Const: General: cooperative, healthy appearing, comfortable, no acute distress, alert and awake HENMT: Head: normocephalic and atraumatic Ears: external ears normal and EAC's normal Face/Nose/Sinus: Normal external nose present and Normal nares present Mouth: Yes Normal oral and palatal mucosa present and Yes lip normal Eyes: General: appearance normal, both eyes and all related structures Neck: Neck: normal visual inspection Resp: Effort & Inspection: normal respiratory effort and able to speak in complete sentences Assessment and Plan Assessment and plan (1) Chronic sinusitis: Qualifiers: Sinusitis location: maxillary Qualified Code(s): J32.0 - Chronic maxillary sinusitis Code(s): J32.9 - Chronic sinusitis, unspecified Status: Acute Plan 58 year old smoker female allergic to doxycycline with chronic recurrent sinus infection, right deviated nasal, hypertrophy of nasal turbinates and sinus headache. 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 Nasal exam:Hypertrophy of nasal turbinates, deviated nasal septum obstructing more than 75% of the nasal passage CT scan(09/01/2024):Deviated nasal septum obstructing more than 75% of the nasal cavity ,hypertrophy of nasal turbinates,significant mucosal thickening in the paranasal sinuses CT scan findings were discussed thoroughly with the patient Patient is recommended to undergo endoscopic sinus surgery ,Septoplasty,bilateral inferior turbinate reduction Benefit of the the procedure were discussed with the patient Alternative of the the proposed surgical plan was discussed with the patient Risks of the procedure including but not limited to bleeding,infection,pain,sep milton perforation,septal hematoma,temporary numbness in the nasal area ,injury to the brain or eye ,intranasal scarring,need for further surgery was discussed with patient patient was advised to stop NSAIDs for 1 month after and before surgery A thorough discussion of the patient symptoms and the surgical treatment plan which included Risks,benefits,and alternatives was conducted ,all questions were answered and the patient wanted to go ahead with the surgical treatment which will be conducted in timely fashion
--- NOTE | 2024-10-19 07:12 | WPDHPUPDATE1 ---
History and Physical Update Update Date/Time: 10/19/24 07:12 History and Physical has been reviewed, including an updated exam of the patient. There are NO changes in the patient's condition. Risks, benefits, and alternatives have been discussed and questions answered. Patient agrees to proceed with procedure.
--- NOTE | 2024-10-19 07:13 | WPDHPUPDATE1 ---
History and Physical Update Update Date/Time: 10/19/24 07:13 History and Physical has been reviewed, including an updated exam of the patient. There are NO changes in the patient's condition. Risks, benefits, and alternatives have been discussed and questions answered. Patient agrees to proceed with procedure.
[2024-10-19] MEDS: ACETAMINOPHEN 500 MG TABLET 1000 MG PO (07:30)
[2024-10-19] MEDS: LACTATED RINGERS 1,000 ML 30 ML IV CONT ×2 (07:35→13:04)
[2024-10-19] MEDS: OXYMETAZOLINE HCL 0.05% NAS 15 ML BTL (*BKC) 2 SPRAY NASAL ×3 (07:40→07:50)
[2024-10-19] MEDS: dexAMETHasone SOD PHOS INJ 10 MG/ML 1 ML VIAL IV PUSH (08:03)
--- NOTE | 2024-10-19 08:12 | SUR.PREOP ---
[address] NIXON TO START AFRIN DOSES
--- NOTE | 2024-10-19 08:17 | WPDANESEPPF ---
Anes - Initial Pre Proc Eval Procedure: Operation Date: 10/19/24 09:00 Proposed Procedures p Septoplasty, - Shola Gonzalez MD s Bilateral Inferior Turbinate Reduction, Bilateral Maxillary Antrostomy, Bilateral Anterior Ethmoidectomy, Bilateral Outfracture of Inferior Turbinates, Possible Bilateral Posterior Ethmoidectomy, Possible Bilateral Sinusotomy, Possible Left Lisa Bullosa - Shola Gonzalez MD Date/Time: 10/19/24 08:17 Surgeon: Shola Gonzalez MD Pre Op Diagnosis: chronic sinusitis, deviated septum, Patient Data Age: 58 Gender: F Height: 1.57 m Weight: 70.6 kg Last Vital Signs Temp 36.4 C 10/19/24 07:03 Pulse 94 10/19/24 07:03 Resp 18 10/19/24 07:03 BP 125/83 10/19/24 07:03 Pulse Ox 98 10/19/24 07:03 O2 Del Method Room Air 10/19/24 07:03 Allergies Allergy/AdvReac Type Severity Reaction Status Date / Time tetracycline Allergy Unknown Unknown Verified 10/10/24 08:44 Home Medications ?Medication ?Instructions ?Recorded ?Confirmed ?Type cyclosporine 0.05 % eye drops in a 1 drp EACH EYE BID 04/28/22 10/19/24 History dropperette (Restasis) rosuvastatin 40 mg tablet (Crestor) 40 mg PO DAILY #90 tabs 08/22/23 10/19/24 Rx cholecalciferol (vitamin D3) 50 50 mcg PO DAILY 12/12/23 10/19/24 History mcg (2,000 unit) capsule esomeprazole magnesium 20 mg 20 mg PO DAILY 12/12/23 10/19/24 History capsule,delayed release (Nexium) alprazolam 0.5 mg tablet 0.5 mg PO TID PRN anxiety #60 tabs 02/08/24 10/10/24 Rx albuterol sulfate 90 mcg/actuation 2 puff inhalation Q4H PRN 06/19/24 10/10/24 Rx aerosol inhaler (Ventolin HFA) shortness of breath or wheezing #8.5 grams budesonide-formoterol HFA 160 2 puff inhalation Q12H #10.2 grams 06/25/24 10/19/24 Rx mcg-4.5 mcg/actuation aerosol inhaler (Symbicort) bupropion HCl 150 mg tablet,12 hr 150 mg PO DAILY #30 tabs 09/18/24 10/19/24 Rx sustained-release (Wellbutrin SR) fluoxetine 10 mg capsule 10 mg PO DAILY #30 caps 09/18/24 10/19/24 Rx fluticasone propionate 50 1 spray intranasal DAILY PRN 10/10/24 10/19/24 History mcg/actuation nasal allergy symptoms spray,suspension (24 Hour Allergy Relief) Patient hx anesthesia problems: none Family hx anesthesia problems: none Results Review: All pre-operative results and documents have been reviewed as part of the pre-operative evaluation. [facility] Past Medical History Medical History Anxiety Encounter for smoking cessation counseling Immunity status testing Hyperinflation of lungs Chronic sinusitis BMI 26.0-26.9,adult URI (upper respiratory infection) Surgical History Surgical History H/O rotator cuff surgery H/O total knee replacement Family History Family History Grandparent Family history of malignant neoplasm Mother Family history of coronary artery disease Dementia Father COPD (chronic obstructive pulmonary disease) Sibling Depression Social History Social History Smoking packs per day: 1 Smoking cigarettes per day: 20.0 Years smoked: 35 Smoking pack-years: 35.00 Smoking status: Current every day smoker Tobacco type: cigarettes Second hand tobacco smoke exposure: Yes Additional smoking assessment comments: Down to 1/2 pack a day. 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 Gender identity (if verbalized by the patient): Female Spiritual care concerns: No Anes - Eval Final PreProcedure Day of Procedure 10/19/24 08:17 Patient weight: overweight Heart: regular rate and rhythm Lungs: decreased breath sounds Airway: Mallampati scale class 1 and special considerations Neurological: alert and oriented Last oral intake: >/= 8 hours ASA classification: III Emergent: no Anesthetic plan: proceed Anesthesia type and monitoring: general ETT and standard monitoring Results Review: All pre-operative results and documents have been reviewed as part of the pre-operative evaluation. Informed Consent: The patient's anesthetic plan and its attendant risks and benefits were discussed with the patient/family/POA. Questions were solicited and answers provided to the satisfaction of the patient/family/POA.
[2024-10-19] MEDS: ceFAZolin 2 GM/D5W 50 ML 2 GM/50 ML BAG IVPB (08:50)
[2024-10-19] MEDS: TRIAMCINOLONE ACET INJ 40 MG/ML VIAL IM (09:33)
[2024-10-19] MEDS: ceFAZolin SODIUM 1 GM VIAL (09:34)
--- NOTE | 2024-10-19 11:01 | SUR.OPER ---
culture given to SMILEY Estevez. Received by Tona in lab at 1100
[2024-10-19] MEDS: MUPIROCIN 2% OINT 22 GM TUBE 1 APPLIC TOPICAL (12:07)
--- NOTE | 2024-10-19 13:01 | P.OP_ITS ---
Procedure Note - Detailed Date of Procedure 10/19/24 Pre-op Diagnosis chronic sinusitis, deviated septum, Post-op Diagnosis Same Surgeon Shola Gonzalez MD Anesthesia General Indications chronic sinusitis Description of Procedure DESCRIPTION OF PROCEDURE: The patient was seen in the preoperative area, informed consent was checked and confirmed. The patient was taken to the operating room, sedated and placed under general anesthesia with an LMA. Eyes were taped and were prepped and draped in the usual sterile fashion. The nose was examined, and the anterior septum was injected with 1% lidocaine with 1:100,000 epinephrine. Elia incision was made and a mucoperichondrial flap was elevated to expose the quadrangular cartilage and bony septum. Incision was then made anteriorly on the quadrangular cartilage to elevate the contralateral mucoperichondrial flap. The deviated quadrangular cartilage was excised with a Ramez knife. At least 1 cm of dorsal and caudal strut of quadrangular was left in place. We resected the deviated bony septum with a Jans en-Hope and a pituitary forceps. After adequate resection of the posterior- inferior bony septum, the mucoperichondrial Flap was laid back in anatomic position. ? We proceeded to the endoscopic sinus procedure starting on the right side. The agger nasi area was injected with 1% lidocaine with 1:100,000 epinephrine. The body of the middle turbinate was injected with 1% lidocaine with 1:100,000 epinephrine. The middle turbinate was gently medialized and the uncinectomy was performed with a pediatric Osorio backbiter and the uncinectomy was completed with a shaver from the inferior-posterior attachment to the superior anterior attachment. The ethmoidectomy was performed by shaving the anterior ethmoid bulla and care was taken to protect the skull base in the lamina papyracea. Maxillary antrum was re-examined with a 30-degree scope. A ball probe was passed into the antrum and was further widened with a backbiter in the anterior- inferior aspect. The left? ?denys bullosa was resected with a shaver. The lateral wall of the denys bullosa was resected with care taken to protect its medial wall and middle turbinate attachment to the lateral nasal wall and the skull base. We proceeded with submucosal inferior turbinate reduction, starting on the right side, a stab incision was made anterior mucosa of inferior turbinate. Submucosal pocket was created along the length of the inferior turbinate and the micro debrider blade 2.5mm thick was introduced anteriorly and into the whole submucosal pocket. Microdebrider was then used to remove the hypertrophied bony parts of anterior turbinate head and soft tissue with the outer layer intact. The residual inferior turbinate was then out fractured using Boies elevator. We proceeded to the left side. A stab incision was made on the anterior mucosa of inferior turbinate. Submucosal pocket was created along the length of the inferior turbinate and the microdebrider blade 2.5mm thick was introduced anteriorly and into the whole submucosal pocket. Microdebrider was then used to remove the hypertrophied bony parts of anterior turbinate head and soft tissue with the outer layer intact. The residual inferior turbinate was then out fractured using Boies elevator. Pledgets were removed from ethmoid cavities, Nasopore sponges were placed ethmoid cavities bilaterally and infiltrated with a mixture of Kenalog and Cefazolin. Curtsi splint was placed in the right side The nose was then suctioned clean and at this point the care of the patient was then transferred to the anesthesiologist where the patient emerged from general anesthesia without complication. Estimated Blood Loss 15 (15 ml) Complications No immediate complications Condition Stable Disposition PACU [facility] Billing Surgery - Charge Forward: Surgery Billing
--- NOTE | 2024-10-19 13:05 | WPDPN ---
Progress Note: A&P Assessment and Plan (1) Chronic sinusitis: Qualifiers: Sinusitis location: maxillary Qualified Code(s): J32.0 - Chronic maxillary sinusitis Code(s): J32.9 - Chronic sinusitis, unspecified Status: Acute (2) Hypertrophy of both inferior nasal turbinates: Code(s): J34.3 - Hypertrophy of nasal turbinates Status: Acute Plan Patient underwent endoscopic sinus surgery +septoplasty+ bilateral inferior turbiante reduction Subjective Date/time seen: 10/19/24 13:05 Review of Systems Review of Systems: Patient underwent endoscopic sinus surgery +septoplasty+ bilateral inferior turbiante reduction ENT: Reports as per HPI Exam HENMT: Face/Nose/Sinus: Normal external nose present and Normal nares present Objective Data Vital Signs Vital Signs: Vital Signs - 24 hr 10/19/24 07:03 Temperature 36.4 C Pulse Rate 94 Respiratory Rate 18 Blood Pressure 125/83 Pulse Oximetry 98 Oxygen Delivery Room Air Intake/Output Intake/Output: Intake & Output 10/16/24 10/17/24 10/18/24 10/19/24 23:59 23:59 23:59 23:59 Intake Total 50 Balance 50 Meds/Results Medications: Active Medications Generic Name Dose Route Start Last Admin Trade Name Freq PRN Reason Stop Dose Admin Fentanyl Citrate 25 mcg 10/19/24 06:27 Fentanyl Citrate Inj (*Crx) 100 Mcg/2 Ml Vial IV PUSH Q2M PRN Pain Lactated Ringer's 1,000 mls @ 30 mls/hr 10/19/24 06:30 10/19/24 07:35 Lr - Lactated Ringers Iv IV CONT 30 mls/hr .Q24H ENA Administration Lactated Ringer's 1,000 mls @ 30 mls/hr 10/19/24 06:30 Lr - Lactated Ringers Iv IV CONT .Q24H ENA Ondansetron HCl 4 mg 10/19/24 06:27 Ondansetron Inj 4 Mg/2 Ml Vial IV PUSH ONCE PRN Nausea Oxycodone HCl 5 mg 10/19/24 06:27 Oxycodone Hcl (*Crx) 5 Mg Tab Ir PO ONCE PRN Pain
--- NOTE | 2024-10-19 13:20 | P.OP_ITS ---
Procedure Note - Detailed Date of Procedure 10/19/24 Pre-op Diagnosis chronic sinusitis, deviated septum,hypertrophy of nasal turbinates Post-op Diagnosis Same Procedure Performed ? Septoplasty ? Nasal endoscopy with maxillary antrostomy bilaterally. ? Nasal endoscopy with anterior ethmoidectomy left . ? Nasal endoscopy with right complete ethmoidectomy, total (anterior and posterior). ? Bilateral inferior turbinate reduction (intramural (submucosal) ablation of the inferior turbinate.) ? Nasal endoscopy with removal of denys bullosa left side Surgeon Shola Gonzalez MD Anesthesia General Findings -stagnant secretion were see in the right maxillary sinus ,culture was sent Description of Procedure DESCRIPTION OF PROCEDURE: The patient was seen in the preoperative area, informed consent was checked and confirmed. Complete details of the above-stated procedures were discussed with the patient including goals,alternatives, risks, and potential complications to include postoperative bleeding, infection,numbness of the upper lip and teeth, vision loss, cerebrospinal fluid leakage, and meningitis The patient was taken to the operating room, sedated and placed under general anesthesia with an LMA. Eyes were taped and were prepped and draped in the usual sterile fashion. The nose was examined, and the left anterior septum was injected with 1% lidocaine with 1:100,000 epinephrine. [place] incision was made and a mucoperichondrial flap was elevated to expose the quadrangular cartilage and bony septum. The deviated quadrangular cartilage was excised with a Raji- Hope. At least 1 cm of dorsal and caudal strut of quadrangular was left in place. We resected the deviated bony septum with a [place]-Hope and a pituitary forceps. After adequate resection of the posterior-inferior bony septum, the mucoperichondrial Flap was laid back in anatomic position.Curtis splint was placed in the right nasal cavity ? We proceeded to the endoscopic sinus procedure starting on the right side. The agger nasi area was injected with 1% lidocaine with 1:100,000 epinephrine. The body of the middle turbinate was injected with 1% lidocaine with 1:100,000 epinephrine. The middle turbinate was gently medialized and the uncinectomy was performed with a pediatric Osorio backbiter and the uncinectomy was completed with a shaver from the inferior-posterior attachment to the superior anterior attachment. The ethmoidectomy was performed by shaving the anterior ethmoid bulla and care was taken to protect the skull base in the lamina papyracea. Maxillary antrum was re-examined with a 30-degree scope. A ball probe was passed into the antrum and was further widened with a backbiter in the anterior- inferior aspect. right posterior ethmoidectomy was done through the inferio-medial quadrant of basal lamella, posterior ethmoid air cells were removed from anterior to posterior direction and from inferior to superior taking care to preserve skull base and lamina papyracea. Then, lateralization of the middle turbinate and shaving, opening of the posterior corridor and shaving the posterior part of the middle turbinate to widen the superior meatus.? We proceeded to the endoscopic sinus procedure on the left side. The agger nasi area was injected with 1% lidocaine with 1:100,000 epinephrine. The body of the middle turbinate was injected with 1% lidocaine with 1:100,000 epinephrine. The middle turbinate was gently medialized and the uncinectomy was performed with a pediatric Osorio backbiter and the uncinectomy was completed with a shaver from the inferior-posterior attachment to the superior anterior attachment. The ethmoidectomy was performed by shaving the anterior ethmoid bulla and care was taken to protect the skull base in the lamina papyracea. Maxillary antrum was re-examined with a 30-degree scope. A ball probe was passed into the antrum and was further widened with a backbiter in the anterior- inferior aspect. The left? ?denys bullosa was resected with a shaver. The lateral wall of the denys bullosa was resected with care taken to protect its medial wall and middle turbinate attachment to the lateral nasal wall and the skull base. We proceeded with submucosal inferior turbinate reduction, starting on the right side, a stab incision was made anterior mucosa of inferior turbinate. Submucosal pocket was created along the length of the inferior turbinate and the micro debrider blade 2.5mm thick was introduced anteriorly and into the whole submucosal pocket. Microdebrider was then used to remove the hypertrophied bony parts of anterior turbinate head and soft tissue with the outer layer intact. We proceeded to the left side. A stab incision was made on the anterior mucosa of inferior turbinate. Submucosal pocket was created along the length of the inferior turbinate and the microdebrider blade 2.5mm thick was introduced anteriorly and into the whole submucosal pocket. Microdebrider was then used to remove the hypertrophied bony parts of anterior turbinate head and soft tissue with the outer layer intact. Nasopore sponges were placed ethmoid cavities bilaterally and infiltrated with a mixture of Kenalog and Cefazolin. The nose was then suctioned clean and at this point the care of the patient was then transferred to the anesthesiologist where the patient emerged from general anesthesia without complication. Estimated Blood Loss 15 (ml) Packing Yes (bilateral nasopore ) Pathology Yes (right maxillary sinus contents ) Complications No immediate complications Condition Stable Disposition PACU [facility] Billing Surgery - Charge Forward: Surgery Billing
[2024-10-19] MEDS: oxyCODONE HCL (*CRX) 5 MG TAB IR PO (14:32)
== END 2024-10-19 15:26 | disposition home or self-care (01) ==
PROVIDERS: PCP Family Medicine; Visit Provider Otolaryngology Otolaryngology/Facial Plastic Surgery
PROC: (CPT 30520; principal; 2024-10-19 09:00)
PROC: (CPT 31256; 2024-10-19 09:00)
DX: J32.0 Chronic maxillary sinusitis (principal); J34.2 Deviated nasal septum; J34.3 Hypertrophy of nasal turbinates; F17.210 Nicotine dependence, cigarettes, uncomplicated
CPT/HCPCS: 31256; 61782; 31254; 31255; 31240; 30520; 30140; 87070; 87075; 87205; 88305; A9270; J0171; J0330; J0690; J1100; J2003; J2004; J2405; J2704; J3010; J3301; J7030; J7120

== ENCOUNTER 2025-03-04 10:45 | Outpatient (CLI) | payer BC, SELFPAY ==
--- NOTE | ~2025-03-04 | CT_ITS ---
CT Scan of the Chest without Contrast: Clinical Indication: Lung cancer screening, nicotine dependence Technique: Contiguous sections were acquired throughout the chest without intravenous contrast. Dose reduction technique was used on this scan by utilizing automated exposure control and iterative recon struction technique. The dose-length product (DLP) was 83.53 mGy-cm. COMPARISON: 02/23/2024 Findings: There is no evidence of any significant mediastinal, hilar or axillary lymphadenopathy. The mediastin al soft tissues appear normal. There is no evidence of pleural or pericardial effusion. The lungs are clear. No pulmonary nodules or infiltrates are noted. Moderate emphysema present. Images through the upper abdomen reveal diffuse hepatic steatosis. Impression: Lung RADS 1: Negative. 12 month follow-up screening CT advised. Moderate emphysema. Reviewed, dictated and finalized at [facility]. Impression: Lung RADS 1: Negative. 12 month follow-up screening CT advised. Moderate emphysema.
--- OUTSIDE RECORDS SUMMARY | 2025-03-04 11:13 | XMS_ITS | Referral Summary ---
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 Gender Identity Not on file Sexual Orientation [...] 3:45 PM CDT Height 157.5 cm (5' 2) 12/27/2021 3:45 PM CDT Body Mass Index 25.97 12/27/2021 3:45 PM CDT Plan of Treatment Not on file Medical Devices Implanted Type Area Spring Clipper Device Identifier Shelf Expiration Date Model / Serial / Lot [employer] Ar-[id number] Corkscrew Suturetape 5.5mm 14.7mm Bioabsorbable Full Thread 1.3mm - [id number] Implanted:Qty: 1 on 04/27/2021 by Carlos Lacy MD at [facility] Right: Shoulder [employer] 12/29/2022 AR-[id number] / / [id number] [employer] Ar-2324bcc Swivelock C 4.75mm 19.1mm Closed Eyelet [place] Suture - [id number] Implanted:Qty: 1 on 04/27/2021 by Carlos Lacy MD at [facility] Right: Shoulder [employer] 09/28/2024 AR-[id number] / / [id number] Insurance [employer] OOS [employer] OOS ANTHEM ACCESS [employer] ACCESS OOS Care Teams Civil Cadd Technician Relationship Specialty Start Date End Date Eliceo Yancey MD [facility] - General 12/23/17
--- OUTSIDE RECORDS SUMMARY | 2025-03-04 11:13 | XMS_ITS | Clinical Summary ---
Author Organization [facility] Care Team Providers Care Stewarding Supervisor Name Role Phone Unavailable Primary Care [...] Cervical Cancer Screening (CCS) 10/30/1993 HPV/Cotest 10/30/1993 Cologuard 10/30/2008 Colonoscopy 10/30/2008 Colorectal Cancer Screening 10/30/2008 Immunochemical Fecal Occult Blood 10/30/2008 Pneumococcal Immunization (5 0+ years) (1 of 1 - PCV) 10/30/2013 Zoster Immunization (1 of 2) 10/30/2013 SARS-COV-2 Immunization (4 - 2023- season) 2024 08/04/2021, 10/17/2020, 09/25/2020 Influenza Immunization (#1) 2025 Respiratory Syncytial Virus (RSV) Immunization (Adult) (1 - 1-dose 75+ series) 10/30/2038 DTaP/Tdap/Td Immunization Discontinued 06/27/2018 TdaP Immunization Completed 06/27/2018 Hepatitis B Immunization Aged Out No longer eligible based on patient's age to complete this topic Human Papillomavirus (HPV) Immunization Aged Out No longer eligible based on patient's age to complete this topic Meningococcal Immunization (ACWY) Aged Out No longer eligible based on patient's age to complete this topic Rotavirus Immunization Aged Out No lo nger eligible based on patient's age to complete this topic
--- OUTSIDE RECORDS SUMMARY | 2025-03-04 11:13 | XMS_ITS | Clinical Summary ---
Author Organization [facility] Address [facility] [place] [address] Care Team Providers Care Furnace Mechanic Name Role Phone Unavailable Primary Care Provider [...] Screening with HPV 10/30/1993 Mammogram Screening 2003 Pneumococcal Vaccine: 50+ Ye ars (1 of 1 - PCV) 10/30/2013 Zoster Vaccines (1 of 2) 10/30/2013 COVID-19 Vaccine (2023-2 5 season) 2024 RSV Immunization or 60+ Years (1 [...]
--- OUTSIDE RECORDS SUMMARY | 2025-03-04 11:13 | XMS_ITS | Clinical Summary ---
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 Gender Identity Not on file Sexual Orientation [...] - season) 2024, 09/25/2020 Influenza Vaccine (#1) 2025 DTaP/Tdap/Td Vaccine (2 - Td or Tdap) 06/27/2028 Medical Devices Implanted Type Area Lithography Contact Worker Device Identifier Shelf Expiration Date Model / Serial / Lot [employer] Ar-1927bct Corkscrew Suturetape 5.5mm 14.7mm Bioabsorbable Full Thread 1.3mm - [id number] Implanted:Qty: 1 on 04/27/2021 by Carlos Lacy MD at [facility] Right: Shoulder [employer] 12/29/2022 AR-1927BCT / / [id number] [employer] Ar-2324bcc Swivelock C 4.75mm 19.1mm Closed Eyelet Vent [place] Suture - [id number] Implanted:Qty: 1 on 04/27/2021 by Carlos Lacy MD at [facility] Right: Shoulder [employer] 09/28/2024 AR-[id number] / / [id number] Insurance BLUE ACCESS OOS BLUE ACCESS OOS ANTHEM ACCESS [employer] OOS Care Teams Voyage Management System Operator Relationship Specialty Start Date End Date Eliceo Yancey MD PCP - General 12/23/17
--- OUTSIDE RECORDS SUMMARY | 2025-03-04 11:13 | XMS_ITS | Encounter Summary ---
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
--- OUTSIDE RECORDS SUMMARY | 2025-03-04 11:13 | XMS_ITS | Clinical Summary ---
Author Organization [facility] [employer] Address [address] [place] [address] Care Team Providers Care Field Logistics Coordinator Name Role Phone Eliceo Yancey MD Primary Care Provider [phone] Rodríguez Howard MD Unavailable [phone] Source Comments [facility],non-owned Affiliates and Associated Physician Practices is amultiple site organization consisting of ambulatory clinics and hospital sitesin [place], [place], [place] and [place]. This disclosure is being madepursuant to the Care Everywhere program and may not contain all information available regarding this patient. Last updated 18.[facility] [employer] [facility] Allergies Active Allergy Reactions Criticality Noted Date Comments Nickel Rash Medium 04/21/2021 Tetracycline Urticaria Medium 06/10/2011 Medications * Be aware that medications may not be up to date on this document. Alwaysverify current medications with the patient. SYMBICORT 160-4.5 MCG/ACT inhaler Inhale 1 puff by mouth once daily 9 Active sertraline (ZOLOFT) 100 MG tablet Take 100 mg by mouth at bedtime 9 Active RESTASIS 0.05 % ophthalmic suspension Instill 1 drop into both eyes 2 times daily 9 Active ALPRAZolam (XANAX) 0.5 MG tablet TK 1 T PO TID PRF ANXIETY 0 Active esomeprazole (NEXIUM) 40 MG capsule Take 40 mg by mouth at bedtime 2 Active rosuvastatin (CRESTOR) 20 MG tablet Take 20 mg by mouth 1 Active albuterol HFA (Proventil; Ventolin; Proair) 108 (90 Base) MCG/ACT inhaler INHALE 2 PUFFS BY MOUTH EVERY 4 HOURS NEEDED FOR SHORTNESS OF BREATH OR WHEEZING 2 Active vitamin D3 (Cholecalciferol ) 25 MCG (1000 UNITS) tablet Take by mouth once daily Active celecoxib (CeleBREX) 200 MG capsuleIndicatio ns:Status post right knee replacement Take 1 (one) capsule by mouth 2 times daily 60 capsule 5 5 Active Active Problems Problem Noted Date Diagnosed Date Primary osteoarthritis of both knees 04/20/2018 Primary osteoarthritis of right knee 01/27/2018 Encounters Date Type Department Care Team Description 01/03/2025 10:55 AM CDT Ancillary Procedure [facility] - Radiology [address] [place] [phone] Jered Girard PA-C Status post right knee replacement 01/03/2025 10:30 AM CDT Office Visit [facility] [address] [place] [phone] Jered Girard PA-C Status post right knee replacement (Primary Dx) 12/26/2024 Telephone [facility] [address] [place] [phone] Rodríguez Howard MD Scheduling from Last 3 Months Social History Tobacco Use Types Packs/Day Years [...] more drinks on one occasion? 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 Gender Identity Not on file Sexual Orientation [...] A M CDT Height 157.5 cm (5' 2) 05/20/2022 7:43 AM CDT s tated Body [...] - COLON CA SCREENING 1963 MAMMOGRAM 1963 HIV SCREENING 10/30/1978 HEPATITIS C SCREENING 10/26/1981 DTAP/TDAP/TD VACCINES (1 - Tdap) 10/30/1982 PNEUMOCOCCAL VACCINE 50+ (1 of 2 - PCV) 10/30/1982 PAP SMEAR 10/30/1984 ZOSTER VACCINE (1 of 2) 10/30/2013 COVID-19 VACCINE (4 - 2023-2 5 season) 2024 08/04/2021, 10/17/2020, 09/25/2020 DEPRESSION SCREENING 08/01/2024 INFLUENZA VACCINE (#1) 2025 Respiratory Syncytial Virus (RSV) Vaccine Pt: or [...] this topic Medical Devices Implanted Type Area Storehouse Clerk Device Identifier Shelf Expiration Date Model / Serial / Lot Cmnt Bone Djo Srg Cblt 40gm Hvisc Strl Implanted:Qty: 1 on 05/20/2022 by Rodríguez Howard MD at [facility] Right: Knee [employer] 02/11/2023 [id number] / / [id number] Tray Tib 67mm Kn Cocr I Beam Implanted:Qty: 1 on 05/20/2022 by Rodríguez Howard MD at [facility] Right: Knee [employer] 02/10/2032 [id number] / / [id number] Cmpnt Fem Kn Rt Cr Cmnt Prm Vngrd Intlk Implanted:Qty: 1 on 05/20/2022 by Rodríguez Howard MD at [facility] Right: Knee [employer] 06/28/2025 [id number] / / [id number] Cmpnt Ptlr Std 28mm 3 Pg Kn Ser A Implanted:Qty: 1 on 05/20/2022 by Rodríguez Howard MD at [facility] Right: Knee [employer] 06/03/2026 [id number] / / [id number] Brng 78fsg92th Vngrd Arcm Kn Ant Stab Implanted:Qty: 1 on 05/20/2022 by Rodríguez Howard MD at [facility] Right: Knee [employer] 03/31/2027 [id number] / / [id number] Procedures Procedure Name Priority Date/Time Associated Diagnosis Comments XR KNEE RIGHT 3VW Routine 01/03/2025 10: 55 AM CDT Status post right knee replacement from Last 3 Months Results * XR Knee Right 3Vw (01/03/2025 10:55 AM CDT) Narrative [facility] [address] - 01/03/2025 10:55 AM CDT Please see progress note in Epic for results. us Jered Girard PA-C DIAGNOSTIC IMAGING ORDERABL ES Final Result [facility] [address] from Last 3 Months Insurance ANTHEM Advance Directives * Full Code (Latest Code Status on File) Date Activated Date Inactivated Comments 05/20/2022 12:37 PM 05/21/2022 2:37 PM Care Teams Field Logistics Coordinator Relationship Specialty Start Date End Date Eliceo Yancey MD [address] [place] [address] PCP - General Family Medicine 01/27/18 Rodrí[place] [address] [place] [address] Orthopedic Surgery 01/27/18
== END 2025-03-04 10:46 | disposition home or self-care (01) ==
PROVIDERS: PCP Family Medicine; Visit Provider Physician Assistant
DX: Z12.2 Encounter for screening for malignant neoplasm of respiratory organs (principal); Z87.891 Personal history of nicotine dependence; J43.9 Emphysema, unspecified
CPT/HCPCS: 71271